=== PATIENT | female | born 1975 | race Caucasian/White ===

== ENCOUNTER 2016-05-25 16:36 | Emergency (ER) | payer OTHER ==
[2016-05-25 16:46] VITALS: BP 143/98; PULSE 102; RESP 18; TEMP 97.6
--- NOTE | 2016-05-25 17:05 | ED ---
General Adult HPI - General Chief complaint: Extremity Injury, Lower Stated complaint: Foot Injury Time Seen by Provider: 05/25/16 16:50 Source: patient, RN notes reviewed Mode of arrival: ambulatory Limitations: no limitations - History of Present Illness Initial comments: This is a 40-year-old female presents with right foot pain after dropping a phone on her toe. Patient states the third through fifth toes are painful with bruising over the fourth digit of the right foot. Patient denies any weakness or tingling but states the fourth toe feels different than the rest. Patient is able to move the digits of the right foot, but has noticed swelling and bruising. Patient is able to ambulate. Patient denies any recent fever, chills , shortness breath, chest pain, abdominal pain, nausea/vomiting/diarrhea, back pain, hematuria, headache, or visual changes, or any other complaints. - Related Data Home Medications Medication Instructions Recorded Confirmed Ibuprofen [Motrin] 800 mg PO QID PRN 03/25/16 03/30/16 Previous Rx's Medication Instructions Recorded Omeprazole 20 mg PO DAILY #15 cap 03/26/16 HYDROcodone/APAP 5-325MG [[place] 1 tab PO Q6HR PRN #20 tab 03/31/16 5-325] Allergies Allergy/AdvReac Type Severity Reaction Status Date / Time cephalexin monohydrate Allergy Rash/Hives Verified 05/25/16 16:46 [From Keflex] ciprofloxacin [From Cipro] Allergy Rash/Hives Verified 05/25/16 16:46 ciprofloxacin HCl Allergy Rash/Hives Verified 05/25/16 16:46 [From Cipro] Latex, Natural Rubber Allergy Itching Verified 05/25/16 16:46 prochlorperazine edisylate Allergy SEVERE Verified 05/25/16 16:46 [From Compazine] ANXIETY prochlorperazine maleate Allergy SEVERE Verified 05/25/16 16:46 [From Compazine] ANXIETY sulfamethoxazole Allergy Rash/Hives Verified 05/25/16 16:46 [From Bactrim] trimethoprim [From Bactrim] Allergy Rash/Hives Verified 05/25/16 16:46 Review of Systems ROS Statement: Those systems with pertinent positive or pertinent negative responses have been documented in the HPI. ROS Other: All systems not noted in ROS Statement are negative. Past Medical History Past Medical History: Osteoarthritis (OA), Pneumonia Additional Past Medical History / Comment(s): BOWEL OBSTRUCTION, PANCREATITIS, INTUSSUSCEPTION, HYDRONEPHROSIS, DEGENERATIVE DISC DISEASE, BULGING DISC, neutropenia, anemia, mitral valve prolapse, occasional heart palpitaions History of Any Multi-Drug Resistant Organisms: None Reported Past Surgical History: Bowel Resection, Breast Surgery, Section, Cholecystectomy, Hernia Repair, Hysterectomy, Orthopedic Surgery, Tonsillectomy Additional Past Surgical History / Comment(s): CERVICAL FUSION, EXPLORATORY LAPAROTOMY - REMOVAL OF ECTOPIC , DANNA-N-Y GASTIC BYPASS, ABDOMINOPLASTY, BREAST BIOPSY AND REDUCTION, bilateral knee arthoscopy, " Gastric bypass reversal enoch morgan during procedure 03/26 04/02 pancreatitis, left knee, myelogram Past Anesthesia/Blood Transfusion Reactions: No Reported Reaction Past Psychological History: Anxiety, Depression Additional Psychological History / Comment(s): no meds for it. discontinued 2013 Smoking Status: Former smoker Past Alcohol Use History: Occasional Past Drug Use History: None Reported Additional Drug Use History / Comment(s): social use of cocaine per pt last use months ago. Refusal of assistance, pt states she is not currently using. - Past Family History Mother Family Medical History: No Reported History General Exam - General Exam Comments Initial Comments: General: The patient is awake and alert, in no distress, and does not appear acutely ill. Neck: The neck is supple, there is no tenderness or JVD. Cardiovascular: There is a regular rate and rhythm. No murmur, rub or gallop is appreciated. Respiratory: Lungs are clear to auscultation, respirations are non-labored, breath sounds are equal. No wheezes, stridor, rales, or rhonchi. Musculoskeletal: Limited range of motion of the right toes due to pain, there is ecchymosis over the fourth digit of the right foot. There is mild tenderness over the 4th MTP joint of the right foot. Strength is 5/5 and Sensation intact. Dorsalis pedis pulses are 2+ bilaterally. Capillary refill is normal at less than 2 seconds. Neurological: A&O x 3. CN II-XII intact, There are no obvious motor or sensory deficits. Coordination appears grossly intact. Speech is normal. Skin: There is ecchymosis over the fourth digit of the right foot. Skin is warm and dry and no rashes or lesions are noted. Psychiatric: Normal mood and affect. Limitations: no limitations Course Vital Signs 05/25/16 16:44 Temperature 97.6 F Pulse Rate 102 H Respiratory 18 Rate Blood Pressure 143/98 O2 Sat by Pulse 99 Oximetry Medical Decision Making - Medical Decision Making This is a 40-year-old female presents with right foot pain after dropping a phone on her foot today. On physical exam there is limited range of motion of the right toes due to pain, there is ecchymosis over the fourth digit of the right foot. There is mild tenderness over the 4th MTP joint of the right foot. Strength is 5/5 and Sensation intact. Dorsalis pedis pulses are 2+ bilaterally. Capillary refill is normal at less than 2 seconds. Patient is able to ambulate. X-ray of the right foot was done and reviewed showing: No acute process. Report reviewed by Dr. Guan. Patient's third and fourth toes of the right foot were [place] taped for comfort. Neurovascular was rechecked and is intact. I discussed the removal of [place] tape if it causes discomfort. I discussed rest, ice, elevate and use [place] tape for compression. I discussed supportive foot wear. I discussed [id number] Tylenol or Motrin as needed for pain. Discussed return parameters. Discussed that patient should follow up with PCP in one to 2 days or return to the [facility] for any worsening symptoms or for any further concerns. Patient was receptive to this plan and patient will be discharged home. I discussed his case with attending physician Dr. Wilde who agrees the plan as stated above. Disposition Clinical Impression: Contusion of toe of right foot Disposition: HOME SELF-CARE Condition: Good Instructions: Foot Contusion (ED) Additional Instructions: Is rest, ice, elevate and use [place] tape for support. Please use over-the- counter, and or Motrin as needed for pain. Please use medication as discussed. Please follow-up with family doctor in the next 2 days of symptoms have not improved. Please return to emergency room if the symptoms increase or worsen or for any other concerns. Time of Disposition: 17:30
--- NOTE | 2016-05-25 17:23 | XR ---
EXAMINATION TYPE: XR foot complete RT DATE OF EXAM: 05/25/2016 5:11 PM COMPARISON: NONE HISTORY: Right foot pain and bruising fourth digit after fall and fell on it TECHNIQUE: 3 views FINDINGS: There is no fracture or malalignment. IMPRESSION: No acute process.
== END 2016-05-25 17:33 | disposition home or self-care (01) ==
LOC: EC 16:36
DX: S90.31XA Contusion of right foot, initial encounter (principal); W22.8XXA Striking against or struck by other objects, initial encounter; Z88.8 Allergy status to other drugs, medicaments and biological substances; Z88.1 Allergy status to other antibiotic agents; Z91.040 Latex allergy status; Z87.891 Personal history of nicotine dependence
CPT/HCPCS: 99284

== ENCOUNTER 2016-08-07 14:16 | Emergency (ER) | payer OTHER ==
[2016-08-07 14:46] VITALS: PULSE 119; RESP 18; TEMP 98.6
--- NOTE | 2016-08-07 16:43 | ED ---
Extremity Problem HPI - General Chief complaint: Extremity Problem,Nontraumatic Stated complaint: Leg Pain Time Seen by Provider: 08/07/16 16:13 Source: patient, RN notes reviewed Mode of arrival: wheelchair Limitations: no limitations - History of Present Illness Initial comments: Patient is a 40-year-old female with chief complaint of left lower extremity swelling for approximately 3 weeks. She reports that she has a history of chronic left leg issues that she did have a knee replacement approximately 5 years ago. She reports that she's had have her kneecap multiple times fluid to be drained. Patient denies any redness over the leg. She reports that the pain is in the posterior. She reports that she does have some peripheral paresthesias and numbness and tingling. She is able to ambulate and bear weight over the leg. She denies any pain with flexion and extension of the ankle or in her toes. Patient reports that she has been more depressed lately and has been laying on the couch. She denies any history of blood clots. Patient denies any recent fever, chills, shortness of breath, chest pain, back pain, abdominal pain, nausea vomiting, numbness or tingling, dysuria or hematuria, constipation or diarrhea, headaches or visual changes, or any other current symptoms - Related Data Home Medications Medication Instructions Recorded Confirmed Ascorbic Acid [Vitamin C] 500 mg PO DAILY 08/07/16 08/07/16 Black Cohosh 40 mg PO DAILY 08/07/16 08/07/16 Japanese Ginseng Root Extract 100 mg PO DAILY 08/07/16 08/07/16 [Ginseng] Pyridoxine [Vitamin B-6] 50 mg PO DAILY 08/07/16 08/07/16 [place]'s Wort 150 mg PO DAILY 08/07/16 08/07/16 Vitamin E (Dl,Tocopheryl Acet) 400 unit PO DAILY 08/07/16 08/07/16 [Vitamin E] Allergies Allergy/AdvReac Type Severity Reaction Status Date / Time cephalexin monohydrate Allergy Rash/Hives Verified 08/07/16 17:06 [From Keflex] ciprofloxacin [From Cipro] Allergy Rash/Hives Verified 08/07/16 17:06 ciprofloxacin HCl Allergy Rash/Hives Verified 08/07/16 17:06 [From Cipro] Latex, Natural Rubber Allergy Itching Verified 08/07/16 17:06 prochlorperazine edisylate Allergy SEVERE Verified 08/07/16 17:06 [From Compazine] ANXIETY prochlorperazine maleate Allergy SEVERE Verified 08/07/16 17:06 [From Compazine] ANXIETY sulfamethoxazole Allergy Rash/Hives Verified 08/07/16 17:06 [From Bactrim] trimethoprim [From Bactrim] Allergy Rash/Hives Verified 08/07/16 17:06 Review of Systems ROS Statement: Those systems with pertinent positive or pertinent negative responses have been documented in the HPI. ROS Other: All systems not noted in ROS Statement are negative. Past Medical History Past Medical History: Osteoarthritis (OA), Pneumonia Additional Past Medical History / Comment(s): BOWEL OBSTRUCTION, PANCREATITIS, INTUSSUSCEPTION, HYDRONEPHROSIS, DEGENERATIVE DISC DISEASE, BULGING DISC, neutropenia, anemia, mitral valve prolapse, occasional heart palpitaions History of Any Multi-Drug Resistant Organisms: None Reported Past Surgical History: Bowel Resection, Breast Surgery, Section, Cholecystectomy, Hernia Repair, Hysterectomy, Orthopedic Surgery, Tonsillectomy Additional Past Surgical History / Comment(s): CERVICAL FUSION, EXPLORATORY LAPAROTOMY - REMOVAL OF ECTOPIC , DANNA-N-Y GASTIC BYPASS, ABDOMINOPLASTY, BREAST BIOPSY AND REDUCTION, bilateral knee arthoscopy, " Gastric bypass reversal enoch morgan during procedure 03/26 04/02 pancreatitis, left knee, myelogram Past Anesthesia/Blood Transfusion Reactions: No Reported Reaction Past Psychological History: Anxiety, Depression Additional Psychological History / Comment(s): no meds for it. discontinued 2013 Smoking Status: Former smoker Past Alcohol Use History: Occasional Past Drug Use History: None Reported Additional Drug Use History / Comment(s): social use of cocaine per pt last use months ago. Refusal of assistance, pt states she is not currently using. - Past Family History Mother Family Medical History: No Reported History General Exam - General Exam Comments Initial Comments: Patient is a pleasant 40-year-old [employer]. No acute distress. Limitations: no limitations General appearance: alert, in no apparent distress Head exam: Present: atraumatic Eye exam: Present: normal appearance, PERRL, EOMI. Absent: scleral icterus, conjunctival injection, periorbital swelling ENT exam: Present: normal exam, mucous membranes moist Neck exam: Present: normal inspection. Absent: tenderness, meningismus, lymphadenopathy Respiratory exam: Present: normal lung sounds bilaterally. Absent: respiratory distress, wheezes, rales, rhonchi, stridor Cardiovascular Exam: Present: regular rate, normal rhythm, normal heart sounds. Absent: systolic murmur, diastolic murmur, rubs, gallop, clicks GI/Abdominal exam: Present: soft, normal bowel sounds. Absent: distended, tenderness, guarding, rebound, rigid Extremities exam: Present: normal inspection, full ROM, normal capillary refill , calf tenderness (Left posterior calf tenderness. No evidence of erythema. Patient is 2+ pedal pulses.). Absent: tenderness, pedal edema, joint swelling Back exam: Present: normal inspection Neurological exam: Present: alert, oriented X3, CN II-XII intact Psychiatric exam: Present: normal affect, normal mood Skin exam: Present: warm, dry, intact, normal color. Absent: rash Course Vital Signs 08/07/16 08/07/16 14:44 17:41 Temperature 98.6 F 98.6 F Pulse Rate 119 H 119 H Respiratory 18 18 Rate Blood Pressure 183/93 152/55 O2 Sat by Pulse 99 99 Oximetry Medical Decision Making - Medical Decision Making Patient is a 40-year-old female 3 weeks of left leg posterior calf swelling. Patient denies any history of blood clots. She is concerned that she may have one. Ultrasound of the left lower extremity is obtained. Ultrasound is negative for DVT. I discussed that the swelling could be dependent from her knee joint. Patient agrees. Patient is advised to follow up with her primary care provider as well as her agronomy specialist. Patient reports that this is a specialist in [place]. I discussed the patient should wear a depression stocking and keep the leg elevated. Return parameters were discussed. Patient understands treatment plan will comply. - Radiology Data Radiology results: report reviewed Ultrasound is negative for DVT. Disposition Clinical Impression: Edema of left lower extremity Disposition: HOME SELF-CARE Condition: Good Instructions: Leg Edema (ED) Additional Instructions: Patient advised to rest, elevate extremity and to wear compression stockings. Follow-up with primary care provider if symptoms continue to persist. I also recommend following up with your orthopedic physician for further testing or evaluation of the knee and the fluid around the knee. Referrals: Lisa Echeverria MD [STAFF PHYSICIAN] - 1-2 days Time of Disposition: 17:24
--- NOTE | 2016-08-07 17:36 | US ---
EXAMINATION TYPE: US venous doppler duplex LE LT DATE OF EXAM: 08/07/2016 5:19 PM COMPARISON: NONE CLINICAL HISTORY: Pain. Numbness left leg SIDE PERFORMED: VESSELS IMAGED: External Iliac Vein (EIV) Common Femoral Vein Deep Femoral Vein Greater Saphenous Vein * Femoral Vein Popliteal Vein Small Saphenous Vein * Proximal Calf Veins (* superficial vessels) TECHNOLOGIST IMPRESSION: wnl Left Leg: Negative for DVT IMPRESSION: Normal exam. No evidence of deep venous thrombosis.
[2016-08-07 17:42] VITALS: BP 152/55
== END 2016-08-07 17:42 | disposition home or self-care (01) ==
LOC: EC 14:16
DX: R60.0 Localized edema (principal); F32.9 Major depressive disorder, single episode, unspecified; F41.9 Anxiety disorder, unspecified; Z87.891 Personal history of nicotine dependence; Z88.1 Allergy status to other antibiotic agents; Z91.040 Latex allergy status; Z88.2 Allergy status to sulfonamides; Z88.8 Allergy status to other drugs, medicaments and biological substances; Z79.899 Other long term (current) drug therapy
CPT/HCPCS: 99283

== ENCOUNTER 2016-11-23 21:46 | Emergency (ER) | payer OTHER ==
[2016-11-23] MEDS ORDERED: SODIUM CHLORIDE 0.9% 1,000 ML IV STA (22:09)
[2016-11-23] MEDS ORDERED: ONDANSETRON 4 MG/2 ML VIAL IVP STA (22:09)
[2016-11-23] MEDS ORDERED: MORPHINE SULFATE 2 MG/ML SYRINGE IVP STA (22:09)
--- NOTE | 2016-11-23 22:25 | ED ---
Abdominal Pain HPI - General Chief Complaint: Abdominal Pain Stated Complaint: Abd /Back Pain Time Seen by Provider: 11/23/16 21:58 Source: patient Mode of arrival: ambulatory Limitations: no limitations - History of Present Illness Initial Comments: This patient is a 41-year-old woman with history of chronic intermittent abdominal pains who states that she has had a recurrence of some of her abdominal pain as well as vomiting and diarrhea. She started having a flareup about 4 days ago and she states that she has been playing phone tag with her physician in order to try and get in and get her symptoms under control, but as she is not able to be seen there she presented here to get some relief. She states that the pain is located in the left lower quadrant and on the right side of her abdomen. The pain is somewhat intermittent and it does seem to move around. It is aching and cramping. She has not found anything that seems to relieve the pain or make it worse. She has also been having a number of rounds of diarrhea and then vomiting started over the past couple days as well. She is not seeing any blood or dark tarry stools. She has not had any blood or coffee-ground emesis. Patient denies fever or chills. MD Complaint: abdominal pain Onset/Timin -: days(s) Location: RUQ, LLQ, RLQ Radiation: none Severity: moderate Quality: cramping Consistency: intermittent Worsens With: nothing Associated Symptoms: nausea, vomiting, diarrhea - Related Data Home Medications Medication Instructions Recorded Confirmed Naproxen [Naprosyn] 500 mg PO Q12HR 11/23/16 11/23/16 Ranitidine HCl [Zantac] 75 mg PO DAILY 11/23/16 11/23/16 Sertraline [Zoloft] 50 mg PO HS 11/23/16 11/23/16 Previous Rx's Medication Instructions Recorded Dicyclomine [Bentyl] 20 mg PO QID #15 tablet 11/24/16 Ondansetron Odt [Zofran ODT] 4 mg PO Q8HR PRN #10 tab 11/24/16 Allergies Allergy/AdvReac Type Severity Reaction Status Date / Time cephalexin monohydrate Allergy Rash/Hives Verified 11/23/16 22:14 [From Keflex] ciprofloxacin [From Cipro] Allergy Rash/Hives Verified 11/23/16 22:14 ciprofloxacin HCl Allergy Rash/Hives Verified 11/23/16 22:14 [From Cipro] Latex, Natural Rubber Allergy Itching Verified 11/23/16 22:14 prochlorperazine edisylate Allergy SEVERE Verified 11/23/16 22:14 [From Compazine] ANXIETY prochlorperazine maleate Allergy SEVERE Verified 11/23/16 22:14 [From Compazine] ANXIETY sulfamethoxazole Allergy Rash/Hives Verified 11/23/16 22:14 [From Bactrim] trimethoprim [From Bactrim] Allergy Rash/Hives Verified 11/23/16 22:14 Review of Systems ROS Statement: Those systems with pertinent positive or pertinent negative responses have been documented in the HPI. ROS Other: All systems not noted in ROS Statement are negative. Constitutional: Reports: weakness (Generalized). Denies: fever, chills Respiratory: Denies: cough, dyspnea, wheezes Cardiovascular: Denies: chest pain, palpitations, edema, syncope Gastrointestinal: Reports: abdominal pain, nausea, vomiting, diarrhea. Denies: constipation, hematemesis, melena, hematochezia Genitourinary: Denies: dysuria, hematuria Musculoskeletal: Denies: back pain Skin: Denies: rash Neurological: Denies: headache, weakness, numbness Past Medical History Past Medical History: Osteoarthritis (OA), Pneumonia Additional Past Medical History / Comment(s): BOWEL OBSTRUCTION, PANCREATITIS, INTUSSUSCEPTION, HYDRONEPHROSIS, DEGENERATIVE DISC DISEASE, BULGING DISC, neutropenia, anemia, mitral valve prolapse, occasional heart palpitaions History of Any Multi-Drug Resistant Organisms: None Reported Past Surgical History: Bowel Resection, Breast Surgery, Section, Cholecystectomy, Hernia Repair, Hysterectomy, Orthopedic Surgery, Tonsillectomy Additional Past Surgical History / Comment(s): CERVICAL FUSION, EXPLORATORY LAPAROTOMY - REMOVAL OF ECTOPIC , DANNA-N-Y GASTIC BYPASS, ABDOMINOPLASTY, BREAST BIOPSY AND REDUCTION, bilateral knee arthoscopy, " Gastric bypass reversal enoch morgan during procedure 03/26 04/02 pancreatitis, left knee, myelogram Past Anesthesia/Blood Transfusion Reactions: No Reported Reaction Past Psychological History: Anxiety, Depression Smoking Status: Former smoker Past Alcohol Use History: Occasional Past Drug Use History: None Reported - Past Family History Mother Family Medical History: No Reported History General Exam Limitations: no limitations General appearance: alert, in no apparent distress Head exam: Present: atraumatic, normocephalic Eye exam: Present: normal appearance. Absent: scleral icterus, conjunctival injection ENT exam: Present: normal oropharynx, mucous membranes moist Respiratory exam: Present: normal lung sounds bilaterally. Absent: respiratory distress, wheezes, rales, rhonchi, stridor Cardiovascular Exam: Present: regular rate (Heart rate 92 at my exam), normal rhythm, normal heart sounds. Absent: systolic murmur, diastolic murmur, rubs, gallop GI/Abdominal exam: Present: soft. Absent: distended, tenderness, guarding, rebound, mass Extremities exam: Present: normal inspection, normal capillary refill. Absent: pedal edema, calf tenderness Back exam: Present: normal inspection. Absent: CVA tenderness (R), CVA tenderness (L) Neurological exam: Present: alert Skin exam: Present: warm, dry, intact, normal color. Absent: rash Course Vital Signs 11/23/16 11/23/16 11/24/16 21:53 22:05 00:00 Temperature 98 F 98.8 F 98.1 F Pulse Rate 107 H 71 65 Respiratory 20 18 20 Rate Blood Pressure 136/91 137/80 145/87 O2 Sat by Pulse 100 97 97 Oximetry Medical Decision Making - Lab Data Result diagrams: 11/23/16 22:30 11/23/16 22:30 Lab Results 11/23/16 11/23/16 11/23/16 Range/Units 22:30 22:30 22:30 WBC 5.6 (3.8-10.6) k/uL RBC 4.73 (3.80-5.40) m/uL Hgb 13.1 (11.4-16.0) gm/dL Hct 38.2 (34.0-46.0) % MCV 80.9 (80.0-100.0) fL MCH 27.8 (25.0-35.0) pg MCHC 34.3 (31.0-37.0) g/dL RDW 14.5 (11.5-15.5) % Plt Count 298 (150-450) k/uL Neutrophils % 59 % Lymphocytes % 32 % Monocytes % 4 % Eosinophils % 2 % Basophils % 1 % Neutrophils # 3.3 (1.3-7.7) k/uL Lymphocytes # 1.8 (1.0-4.8) k/uL Monocytes # 0.2 (0-1.0) k/uL Eosinophils # 0.1 (0-0.7) k/uL Basophils # 0.0 (0-0.2) k/uL Sodium 143 (137-145) mmol/L Potassium 4.1 (3.5-5.1) mmol/L Chloride 106 (98-107) mmol/L Carbon Dioxide 23 (22-30) mmol/L Anion Gap 14 mmol/L BUN 12 (7-17) mg/dL Creatinine 0.60 (0.52-1.04) mg/dL Est GFR (MDRD) Af Amer >60 (>60 ml/min/1.73 sqM) Est GFR (MDRD) Non-Af >60 (>60 ml/min/1.73 sqM) Glucose 94 (74-99) mg/dL Plasma Lactic Acid Billy 1.7 (0.7-2.0) mmol/L Calcium 9.8 (8.4-10.2) mg/dL Total Bilirubin 0.4 (0.2-1.3) mg/dL AST 17 (14-36) U/L ALT 22 (9-52) U/L Alkaline Phosphatase 82 (38-126) U/L Total Protein 7.5 (6.3-8.2) g/dL Albumin 4.5 (3.5-5.0) g/dL Amylase 65 (30-110) U/L Lipase 163 (23-300) U/L Urine Color Urine Appearance (Clear) Urine pH (5.0-8.0) Ur Specific [place] (1.001-1.035) Urine Protein (Negative) Urine Glucose (UA) (Negative) Urine Ketones (Negative) Urine Blood (Negative) Urine Nitrite (Negative) Urine Bilirubin (Negative) Urine Urobilinogen (<2.0) mg/dL Ur Leukocyte Esterase (Negative) Urine HCG, Qual (Not Detectd) Urine Opiates Screen (NotDetected) Ur Oxycodone Screen (NotDetected) Urine Methadone Screen (NotDetected) Ur Propoxyphene Screen (NotDetected) Ur Barbiturates Screen (NotDetected) U Tricyclic Antidepress (NotDetected) Ur Phencyclidine Scrn (NotDetected) Ur Amphetamines Screen (NotDetected) U Methamphetamines Scrn (NotDetected) U Benzodiazepines Scrn (NotDetected) Urine Cocaine Screen (NotDetected) U Marijuana (THC) Screen (NotDetected) 11/23/16 11/23/16 Range/Units 23:10 23:10 WBC (3.8-10.6) k/uL RBC (3.80-5.40) m/uL Hgb (11.4-16.0) gm/dL Hct (34.0-46.0) % MCV (80.0-100.0) fL MCH (25.0-35.0) pg MCHC (31.0-37.0) g/dL RDW (11.5-15.5) % Plt Count (150-450) k/uL Neutrophils % % Lymphocytes % % Monocytes % % Eosinophils % % Basophils % % Neutrophils # (1.3-7.7) k/uL Lymphocytes # (1.0-4.8) k/uL Monocytes # (0-1.0) k/uL Eosinophils # (0-0.7) k/uL Basophils # (0-0.2) k/uL Sodium (137-145) mmol/L Potassium (3.5-5.1) mmol/L Chloride (98-107) mmol/L Carbon Dioxide (22-30) mmol/L Anion Gap mmol/L BUN (7-17) mg/dL Creatinine (0.52-1.04) mg/dL Est GFR (MDRD) Af Amer (>60 ml/min/1.73 sqM) Est GFR (MDRD) Non-Af (>60 ml/min/1.73 sqM) Glucose (74-99) mg/dL Plasma Lactic Acid Billy (0.7-2.0) mmol/L Calcium (8.4-10.2) mg/dL Total Bilirubin (0.2-1.3) mg/dL AST (14-36) U/L ALT (9-52) U/L Alkaline Phosphatase (38-126) U/L Total Protein (6.3-8.2) g/dL Albumin (3.5-5.0) g/dL Amylase (30-110) U/L Lipase (23-300) U/L Urine Color Light Yellow Urine Appearance Clear (Clear) Urine pH 5.5 (5.0-8.0) Ur Specific [place] 1.003 (1.001-1.035) Urine Protein Negative (Negative) Urine Glucose (UA) Negative (Negative) Urine Ketones Negative (Negative) Urine Blood Negative (Negative) Urine Nitrite Negative (Negative) Urine Bilirubin Negative (Negative) Urine Urobilinogen <2.0 (<2.0) mg/dL Ur Leukocyte Esterase Negative (Negative) Urine HCG, Qual Not Detected (Not Detectd) Urine Opiates Screen Detected H (NotDetected) Ur Oxycodone Screen Not Detected (NotDetected) Urine Methadone Screen Not Detected (NotDetected) Ur Propoxyphene Screen Not Detected (NotDetected) Ur Barbiturates Screen Not Detected (NotDetected) U Tricyclic Antidepress Not Detected (NotDetected) Ur Phencyclidine Scrn Not Detected (NotDetected) Ur Amphetamines Screen Not Detected (NotDetected) U Methamphetamines Scrn Detected H (NotDetected) U Benzodiazepines Scrn Not Detected (NotDetected) Urine Cocaine Screen Not Detected (NotDetected) U Marijuana (THC) Screen Not Detected (NotDetected) Disposition Clinical Impression: Chronic abdominal pain Disposition: HOME SELF-CARE Condition: Fair Instructions: Abdominal Pain (ED) Prescriptions: Dicyclomine [Bentyl] 20 mg PO QID #15 tablet Ondansetron Odt [Zofran ODT] 4 mg PO Q8HR PRN #10 tab PRN Reason: Nausea Referrals: Lisa Echeverria MD [Primary Care Provider] - 1-2 days
[2016-11-23 22:43] LABS: Basophils % (A) 1 %; CH 26.5; CHCM 32.8; Eosinophils # (A) 0.1 k/uL (0-0.7); Eosinophils % (A) 2 %; HCT 38.2 % (34.0-46.0); HDW 2.99; HGB 13.1 gm/dL (11.4-16.0); Luc # (Auto) 0.19; Luc % (Auto) 3; Lymphocytes # (A) 1.8 k/uL (1.0-4.8); Lymphocytes % (A) 32 %; MCH 27.8 pg (25.0-35.0); MCHC 34.3 g/dL (31.0-37.0); MCV 80.9 fL (80.0-100.0); Mean Platelet Volume 7.3; Monocytes # (A) 0.2 k/uL (0-1.0); Monocytes % (A) 4 %; Neutrophils # (A) 3.3 k/uL (1.3-7.7); Neutrophils % (A) 59 %; RBC 4.73 m/uL (3.80-5.40); RDW 14.5 % (11.5-15.5); WBC 5.6 k/uL (3.8-10.6); WBC (Perox) 5.53
[2016-11-23 22:52] LABS: ALT 22 U/L (9-52); AST 17 U/L (14-36); Alkaline Phosphatase 82 U/L (38-126); Amylase 65 U/L (30-110); Anion Gap 14 mmol/L; Blood Urea Nitrogen 12 mg/dL (7-17); Calcium 9.8 mg/dL (8.4-10.2); Carbon Dioxide 23 mmol/L (22-30); Chloride 106 mmol/L (98-107); Glucose 94 mg/dL (74-99); Non-African American GFR(MDRD) >60 (>60 ml/min/1.73 sqM); Potassium 4.1 mmol/L (3.5-5.1); Sodium 143 mmol/L (137-145); Total Bilirubin 0.4 mg/dL (0.2-1.3); Total Protein 7.5 g/dL (6.3-8.2)
[2016-11-23 23:19] LABS: Appearance,Urine Clear (Clear); Bilirubin,Urine Negative (Negative); Glucose,Urine (UA) Negative (Negative); Ketones,Urine Negative (Negative); Leukocyte Esterase,Urine Negative (Negative); Nitrite,Urine Negative (Negative); PH, Urine 5.5 (5.0-8.0); Protein,Urine Negative (Negative); Specific Gravity,Urine 1.003 (1.001-1.035); UA Billing (MACRO vs. MICRO) CHEM; Urobilinogen,Urine <2.0 mg/dL (<2.0)
--- NOTE | 2016-11-23 23:19 | XR ---
Exam: FILM KUB INDICATION: Abdominal pain COMPARISON: Abdominal radiograph exam 03/30/16 FINDINGS: 2 frontal views of the abdomen obtained. Cholecystectomy clips are noted along with surgical clips left upper quadrant. Few scattered air-filled loops of small bowel mildly prominent in caliber with caliber up to 3.5 cm greatest diameter. In the lower abdomen a few small air-fluid levels in the air-filled loops of small bowel noted. No free air under the diaphragm. No radiopaque renal calculi identified. Osseous structures intact. IMPRESSION: Few scattered air-filled loops of small bowel mildly prominent in caliber with caliber up to 3.5 cm greatest diameter. In the lower abdomen a few small air-fluid levels in the air-filled loops of small bowel noted. Findings such that a low-grade partial bowel obstruction. Considered in the proper clinical setting. Finding also present a partial ileus process. Follow-up can be considered to reevaluate. Cholecystectomy clips and surgical clips in the left upper quadrant of the abdomen. No free air under the diaphragm.
[2016-11-24] MEDS ORDERED: MORPHINE SULFATE 4 MG/ML SYRINGE IV STA (00:07)
[2016-11-24] MEDS ORDERED: ONDANSETRON 4 MG/2 ML VIAL IVP STA (00:07)
[2016-11-24 01:34] VITALS: BP 138/72; PULSE 70; RESP 18; TEMP 98.2
== END 2016-11-24 01:30 | disposition home or self-care (01) ==
LOC: EC 21:46
DX: R10.32 Left lower quadrant pain (principal); G89.29 Other chronic pain; M19.90 Unspecified osteoarthritis, unspecified site; F32.9 Major depressive disorder, single episode, unspecified; Z90.49 Acquired absence of other specified parts of digestive tract; Z87.891 Personal history of nicotine dependence; Z88.1 Allergy status to other antibiotic agents; Z91.040 Latex allergy status; Z91.048 Other nonmedicinal substance allergy status; Z88.8 Allergy status to other drugs, medicaments and biological substances; Z88.2 Allergy status to sulfonamides; Z79.1 Long term (current) use of non-steroidal anti-inflammatories (NSAID); Z79.899 Other long term (current) drug therapy
CPT/HCPCS: 99284; 96374; 96375; 96376 ×2; 96361; 36415; 80053; 82150; 83605; 83690; 85025; 81003; 81025; 80306; 74000; J2270 ×2; J2405 ×2

== ENCOUNTER 2016-12-30 00:05 | Emergency (ER) | payer OTHER ==
[2016-12-30 00:15] VITALS: RESP 18
[2016-12-30] MEDS ORDERED: MORPHINE SULFATE 4 MG/ML SYRINGE IV STA (01:26)
[2016-12-30] MEDS ORDERED: SODIUM CHLORIDE 0.9% 2,000 ML IV STA (01:26)
[2016-12-30 01:42] LABS: Anisocytosis Slight; Basophils % (A) 1 %; CH 27.6; Eosinophils # (A) 0.1 k/uL (0-0.7); Eosinophils % (A) 3 %; HCT 35.7 % (34.0-46.0); HDW 2.84; HGB 11.5 gm/dL (11.4-16.0); Luc # (Auto) 0.19; Luc % (Auto) 4; Lymphocytes # (A) 1.9 k/uL (1.0-4.8); Lymphocytes % (A) 41 %; MCH 27.1 pg (25.0-35.0); MCHC 32.3 g/dL (31.0-37.0); MCV 83.9 fL (80.0-100.0); Mean Platelet Volume 7.3; Monocytes # (A) 0.3 k/uL (0-1.0); Monocytes % (A) 6 %; Neutrophils # (A) 2.1 k/uL (1.3-7.7); Neutrophils % (A) 45 %; RBC 4.25 m/uL (3.80-5.40); RDW 16.1 % (11.5-15.5); WBC 4.7 k/uL (3.8-10.6); WBC (Perox) 4.76
[2016-12-30 01:43] LABS: Appearance,Urine Clear (Clear); Bilirubin,Urine Negative (Negative); Glucose,Urine (UA) Negative (Negative); Ketones,Urine Negative (Negative); Leukocyte Esterase,Urine Negative (Negative); Nitrite,Urine Negative (Negative); PH, Urine 5.5 (5.0-8.0); Protein,Urine Negative (Negative); Specific Gravity,Urine 1.002 (1.001-1.035); UA Billing (MACRO vs. MICRO) CHEM; Urobilinogen,Urine <2.0 mg/dL (<2.0)
[2016-12-30 01:52] LABS: ALT 26 U/L (9-52); AST 22 U/L (14-36); Alkaline Phosphatase 84 U/L (38-126); Amylase 91 U/L (30-110); Anion Gap 12 mmol/L; Blood Urea Nitrogen 10 mg/dL (7-17); Calcium 9.4 mg/dL (8.4-10.2); Carbon Dioxide 24 mmol/L (22-30); Chloride 105 mmol/L (98-107); Glucose 95 mg/dL (74-99); Non-African American GFR(MDRD) >60 (>60 ml/min/1.73 sqM); Potassium 4.3 mmol/L (3.5-5.1); Sodium 141 mmol/L (137-145); Total Bilirubin 0.2 mg/dL (0.2-1.3)
[2016-12-30 02:03] LABS: Prothrombin Time 9.9 sec (9.0-12.0)
--- NOTE | 2016-12-30 02:13 | XR ---
EXAM: XR Abdomen, 1 View CLINICAL HISTORY: Reason: abdominal pain TECHNIQUE: Frontal upright views of the abdomen/pelvis. COMPARISON: 11/23/16 KUB. FINDINGS: Intraperitoneal space: No free air. Gastrointestinal tract: There are again dilated air and fluid-filled jejunal loops within the mid and left upper to mid abdomen. Currently, the loops measure just under 4 cm in diameter versus 3.9 cm previously. There is some air seen within the colon to the level of the rectum. Bones/joints: Unremarkable. Soft tissues: There are again postsurgical changes in the left and right upper quadrants. IMPRESSION: Persistent or recurrent air and fluid-filled dilated small bowel loops in the left upper and mid abdomen, the differential for which again includes the possibility of small bowel obstruction or localizing ileus. This could be correlated clinically to guide further follow-up as clinically indicated. No evidence of free air.
[2016-12-30 02:23] LABS: Partial Thromboplastin Time 20.9 sec (22.0-30.0)
--- NOTE | 2016-12-30 02:35 | ED ---
Abdominal Pain HPI - General Chief Complaint: Abdominal Pain Stated Complaint: LOWER ABD/BACK PAIN Time Seen by Provider: 12/30/16 01:09 Source: patient, RN notes reviewed, old records reviewed Mode of arrival: ambulatory Limitations: no limitations - History of Present Illness Initial Comments: 41-year-old female presents emergency Department chief complaint of abdominal pain for the past few hours. Patient reports it's in the left side. She has an extensive surgical history with bowel resections. Patient has past medical history of intussusception, chronic abdominal pain, small bowel obstructions, pancreatitis. Patient reports that she's had no vomiting but feels nauseated. She states the pain radiates towards her back. She denies any changes in urination. States normal bowel movements as well. - Related Data Home Medications Medication Instructions Recorded Confirmed Naproxen [Naprosyn] 500 mg PO Q12HR 11/23/16 11/23/16 Ranitidine HCl [Zantac] 75 mg PO DAILY 11/23/16 11/23/16 Sertraline [Zoloft] 50 mg PO HS 11/23/16 11/23/16 Previous Rx's Medication Instructions Recorded Dicyclomine [Bentyl] 20 mg PO QID #15 tablet 11/24/16 Ondansetron Odt [Zofran ODT] 4 mg PO Q8HR PRN #10 tab 11/24/16 Allergies Allergy/AdvReac Type Severity Reaction Status Date / Time cephalexin monohydrate Allergy Rash/Hives Verified 12/30/16 00:15 [From Keflex] ciprofloxacin [From Cipro] Allergy Rash/Hives Verified 12/30/16 00:15 ciprofloxacin HCl Allergy Rash/Hives Verified 12/30/16 00:15 [From Cipro] Latex, Natural Rubber Allergy Itching Verified 12/30/16 00:15 prochlorperazine edisylate Allergy SEVERE Verified 12/30/16 00:15 [From Compazine] ANXIETY prochlorperazine maleate Allergy SEVERE Verified 12/30/16 00:15 [From Compazine] ANXIETY sulfamethoxazole Allergy Rash/Hives Verified 12/30/16 00:15 [From Bactrim] trimethoprim [From Bactrim] Allergy Rash/Hives Verified 12/30/16 00:15 Review of Systems ROS Statement: Those systems with pertinent positive or pertinent negative responses have been documented in the HPI. ROS Other: All systems not noted in ROS Statement are negative. Past Medical History Past Medical History: Osteoarthritis (OA), Pneumonia Additional Past Medical History / Comment(s): BOWEL OBSTRUCTION, PANCREATITIS, INTUSSUSCEPTION, HYDRONEPHROSIS, DEGENERATIVE DISC DISEASE, BULGING DISC, neutropenia, anemia, mitral valve prolapse, occasional heart palpitaions History of Any Multi-Drug Resistant Organisms: None Reported Past Surgical History: Bowel Resection, Breast Surgery, Section, Cholecystectomy, Hernia Repair, Hysterectomy, Orthopedic Surgery, Tonsillectomy Additional Past Surgical History / Comment(s): CERVICAL FUSION, EXPLORATORY LAPAROTOMY - REMOVAL OF ECTOPIC , DANNA-N-Y GASTIC BYPASS, ABDOMINOPLASTY, BREAST BIOPSY AND REDUCTION, bilateral knee arthoscopy, " Gastric bypass reversal enoch morgan during procedure 03/26 04/02 pancreatitis, left knee, myelogram Past Anesthesia/Blood Transfusion Reactions: No Reported Reaction Past Psychological History: Anxiety, Depression Smoking Status: Former smoker Past Alcohol Use History: Occasional Past Drug Use History: None Reported - Past Family History Mother Family Medical History: No Reported History General Exam - General Exam Comments Initial Comments: 41-year-old female. No acute distress. Limitations: no limitations General appearance: alert, in no apparent distress Head exam: Present: atraumatic, normocephalic, normal inspection Eye exam: Present: normal appearance, PERRL, EOMI. Absent: scleral icterus, conjunctival injection, periorbital swelling ENT exam: Present: normal exam, mucous membranes moist Neck exam: Present: normal inspection. Absent: tenderness, meningismus, lymphadenopathy Respiratory exam: Present: normal lung sounds bilaterally. Absent: respiratory distress, wheezes, rales, rhonchi, stridor Cardiovascular Exam: Present: regular rate, normal rhythm, normal heart sounds. Absent: systolic murmur, diastolic murmur, rubs, gallop, clicks GI/Abdominal exam: Present: soft, tenderness (LUQ and LLQ tenderness. ), normal bowel sounds. Absent: distended, guarding, rebound, rigid Extremities exam: Present: normal inspection, full ROM, normal capillary refill. Absent: tenderness, pedal edema, joint swelling, calf tenderness Back exam: Present: normal inspection Neurological exam: Present: alert, oriented X3, CN II-XII intact Psychiatric exam: Present: normal affect, normal mood Skin exam: Present: warm, dry, intact, normal color. Absent: rash Course Vital Signs 12/30/16 12/30/16 00:12 02:50 Temperature 97.0 F L 98.3 F Pulse Rate 115 H 72 Respiratory 18 18 Rate Blood Pressure 143/97 146/83 O2 Sat by Pulse 99 98 Oximetry Medical Decision Making - Medical Decision Making 41-year-old female presents emergency Department chief complaint of abdominal pain for the past few hours. Patient reports it's in the left side. She has an extensive surgical history with bowel resections. Patient has past medical history of intussusception, chronic abdominal pain, small bowel obstructions, pancreatitis. Patient reports that she's had no vomiting but feels nauseated. She states the pain radiates towards her back. Patient labwork was reviewed, negative for any acute process. Amylase, lipase, WBC, and liver enzymes within normal limits. Patient recieved xray which shows some mild illeus. Patient had previous finding on xrays before, and was sent home. Clinically rafita has no sign of illeus or bowel obstruction, she has had no vomiting and reports passing gas and bowel movements. She was informed of these results, advised to see primary care or return if symptoms worses. Discussed bowel rest and clear liquid diet. - Lab Data Result diagrams: 12/30/16 00:48 12/30/16 00:48 Lab Results 12/30/16 12/30/16 12/30/16 Range/Units 00:48 00:48 00:48 WBC 4.7 (3.8-10.6) k/uL RBC 4.25 (3.80-5.40) m/uL Hgb 11.5 (11.4-16.0) gm/dL Hct 35.7 (34.0-46.0) % MCV 83.9 (80.0-100.0) fL MCH 27.1 (25.0-35.0) pg MCHC 32.3 (31.0-37.0) g/dL RDW 16.1 H (11.5-15.5) % Plt Count 320 (150-450) k/uL Neutrophils % 45 % Lymphocytes % 41 % Monocytes % 6 % Eosinophils % 3 % Basophils % 1 % Neutrophils # 2.1 (1.3-7.7) k/uL Lymphocytes # 1.9 (1.0-4.8) k/uL Monocytes # 0.3 (0-1.0) k/uL Eosinophils # 0.1 (0-0.7) k/uL Basophils # 0.0 (0-0.2) k/uL Anisocytosis Slight PT 9.9 (9.0-12.0) sec INR 1.0 (<1.2) APTT 20.9 L (22.0-30.0) sec Sodium 141 (137-145) mmol/L Potassium 4.3 (3.5-5.1) mmol/L Chloride 105 (98-107) mmol/L Carbon Dioxide 24 (22-30) mmol/L Anion Gap 12 mmol/L BUN 10 (7-17) mg/dL Creatinine 0.60 (0.52-1.04) mg/dL Est GFR (MDRD) Af Amer >60 (>60 ml/min/1.73 sqM) Est GFR (MDRD) Non-Af >60 (>60 ml/min/1.73 sqM) Glucose 95 (74-99) mg/dL Calcium 9.4 (8.4-10.2) mg/dL Total Bilirubin 0.2 (0.2-1.3) mg/dL AST 22 (14-36) U/L ALT 26 (9-52) U/L Alkaline Phosphatase 84 (38-126) U/L Total Protein 7.0 (6.3-8.2) g/dL Albumin 4.2 (3.5-5.0) g/dL Amylase 91 (30-110) U/L Lipase 245 (23-300) U/L Urine Color Urine Appearance (Clear) Urine pH (5.0-8.0) Ur Specific [place] (1.001-1.035) Urine Protein (Negative) Urine Glucose (UA) (Negative) Urine Ketones (Negative) Urine Blood (Negative) Urine Nitrite (Negative) Urine Bilirubin (Negative) Urine Urobilinogen (<2.0) mg/dL Ur Leukocyte Esterase (Negative) 12/30/16 Range/Units 00:48 WBC (3.8-10.6) k/uL RBC (3.80-5.40) m/uL Hgb (11.4-16.0) gm/dL Hct (34.0-46.0) % MCV (80.0-100.0) fL MCH (25.0-35.0) pg MCHC (31.0-37.0) g/dL RDW (11.5-15.5) % Plt Count (150-450) k/uL Neutrophils % % Lymphocytes % % Monocytes % % Eosinophils % % Basophils % % Neutrophils # (1.3-7.7) k/uL Lymphocytes # (1.0-4.8) k/uL Monocytes # (0-1.0) k/uL Eosinophils # (0-0.7) k/uL Basophils # (0-0.2) k/uL Anisocytosis PT (9.0-12.0) sec INR (<1.2) APTT (22.0-30.0) sec Sodium (137-145) mmol/L Potassium (3.5-5.1) mmol/L Chloride (98-107) mmol/L Carbon Dioxide (22-30) mmol/L Anion Gap mmol/L BUN (7-17) mg/dL Creatinine (0.52-1.04) mg/dL Est GFR (MDRD) Af Amer (>60 ml/min/1.73 sqM) Est GFR (MDRD) Non-Af (>60 ml/min/1.73 sqM) Glucose (74-99) mg/dL Calcium (8.4-10.2) mg/dL Total Bilirubin (0.2-1.3) mg/dL AST (14-36) U/L ALT (9-52) U/L Alkaline Phosphatase (38-126) U/L Total Protein (6.3-8.2) g/dL Albumin (3.5-5.0) g/dL Amylase (30-110) U/L Lipase (23-300) U/L Urine Color Colorless Urine Appearance Clear (Clear) Urine pH 5.5 (5.0-8.0) Ur Specific [place] 1.002 (1.001-1.035) Urine Protein Negative (Negative) Urine Glucose (UA) Negative (Negative) Urine Ketones Negative (Negative) Urine Blood Negative (Negative) Urine Nitrite Negative (Negative) Urine Bilirubin Negative (Negative) Urine Urobilinogen <2.0 (<2.0) mg/dL Ur Leukocyte Esterase Negative (Negative) Disposition Clinical Impression: Abdominal pain, Diarrhea Disposition: HOME SELF-CARE Condition: Good Instructions: Abdominal Pain (ED) Additional Instructions: Patient is a follow-up with her primary care physician. Return to the emergency department if any alarming signs or symptoms occur. Referrals: Lisa Echeverria MD [Primary Care Provider] - 1-2 days Time of Disposition: 02:53
[2016-12-30] MEDS ORDERED: HYDROmorphone 1 MG/ML 1 ML SYRINGE IVP STA (02:53)
[2016-12-30 02:54] VITALS: BP 146/83; PULSE 72; TEMP 98.3
== END 2016-12-30 03:03 | disposition home or self-care (01) ==
LOC: EC 00:05
DX: R10.9 Unspecified abdominal pain (principal); R19.7 Diarrhea, unspecified; R11.0 Nausea; M54.9 Dorsalgia, unspecified; M19.90 Unspecified osteoarthritis, unspecified site; F32.9 Major depressive disorder, single episode, unspecified; F41.9 Anxiety disorder, unspecified; Z87.891 Personal history of nicotine dependence; Z79.1 Long term (current) use of non-steroidal anti-inflammatories (NSAID); Z79.899 Other long term (current) drug therapy; Z88.1 Allergy status to other antibiotic agents; Z91.040 Latex allergy status; Z87.19 Personal history of other diseases of the digestive system; Z90.49 Acquired absence of other specified parts of digestive tract
CPT/HCPCS: 36415; 80053; 82150; 83690; 85025; 85610; 85730; 81003; 74000; 99284; 96374; 96375; 96361; J2270; J1170

== ENCOUNTER → 2017-02-12 | Outpatient (CLI) | payer OTHER ==
--- NOTE | 2017-02-14 07:58 | MR ---
EXAMINATION TYPE: MR lumbar spine wo con DATE OF EXAM: 02/12/2017 COMPARISON: NONE HISTORY: Chronic pain TECHNIQUE: Multiplanar, multisequence images of the lumbar spine were acquired. L1-L2: Small posterior disc herniation causes anterior mass effect on the thecal sac. No significant foraminal encroachment or central stenosis. L2-L3: Normal disc appearance without desiccation. No herniation, protrusion or disc bulging. No ca nal stenosis is present. Foramina are patent bilaterally. L3-L4: Mild facet arthropathy. No significant central stenosis or sizable disc herniation. Broad-base d posterior disc bulge causes minimal anterior mass effect on the thecal sac. No significant central stenosis. L4-L5: There is facet arthropathy with hypertrophy ligamentum flavum encroaching on the lateral reces ses. Circumferential posterior disc bulge causes mild anterior mass effect on the thecal sac and exte nds towards the neural foramina encroaching mildly. No significant central stenosis. L5-S1: Eccentric, right lateral disc deviation present towards the right of midline causing some righ t foraminal encroachment, minimal anterolateral mass effect on the thecal sac. No significant central canal stenosis. Facet arthropathy changes present. Lumbar segments are intact. No paraspinal masses are identified. Conus medullaris has a normal appe arance. Lumbar vertebral bodies show preserved height and alignment. Bone marrow signal is maintained . Some loss of disc height and signal present especially at L5-S1, L3-4, L1-2. Mild spinal curvature is suspected. IMPRESSION: Mild degenerative disc disease as described with facet arthropathy and additional findings as describ ed above.
== END | disposition home or self-care (01) ==
LOC: RADMRIMAIN 19:39
PROVIDERS: ATTEND Family Medicine
DX: M51.36 Other intervertebral disc degeneration, lumbar region (principal); M46.86 Other specified inflammatory spondylopathies, lumbar region; Z88.1 Allergy status to other antibiotic agents; Z88.2 Allergy status to sulfonamides; Z88.3 Allergy status to other anti-infective agents; Z88.8 Allergy status to other drugs, medicaments and biological substances
CPT/HCPCS: 72148

== ENCOUNTER → 2017-04-14 | Outpatient (CLI) | payer OTHER ==
--- NOTE | 2017-04-14 11:55 | ECHOF ---
Referral Reason:R00.2 Palpitations, Cardiac Murmur R01.1 MEASUREMENTS -------- HEIGHT: 167.6 cm WEIGHT: 86.2 kg BP: RVIDd: 3.6 cm (< 3.3) IVSd: 0.9 cm (0.6 - 1.1) LVIDd: 4.5 cm (3.9 - 5.3) LVPWd: 1.2 cm (0.6 - 1.1) IVSs: 1.4 cm LVIDs: 2.4 cm LVPWs: 2.3 cm LAESV Index (A-L): 37.72 ml/m Ao Diam: 2.7 cm (2.0 - 3.7) AV Cusp: 1.9 cm (1.5 - 2.6) LA Diam: 3.7 cm (2.7 - 3.8) EPSS: 0.3 cm MV E Niels: 0.98 m/s MV DecT: 224 ms MV A Niels: 0.74 m/s MV E/A Ratio: 1.31 RAP: 5.00 mmHg RVSP: 27.59 mmHg MV EF SLOPE: 0.00 mm/s (70 - 150) MV EXCURSION: 1.93 cm (> 18.000) FINDINGS -------- Sinus rhythm. This was a technically good study. The left ventricular size is normal. There is borderline concentric left ventricular hypertrophy. Overall left ventricular systolic function is normal with, an EF between 55 - 60 %. The right ventricle is mildly enlarged. LA is moderately dilated 34-39 ml/m2 The right atrium is normal in size. The aortic valve is trileaflet, and appears structurally normal. No aortic stenosis or regurgitation. Mild mitral regurgitation is present. Mild tricuspid regurgitation present. The right ventricular systolic pressure, as measured by Doppl er, is 27.59mmHg. Pulmonic valve appears structurally normal. The aortic root size is normal. Normal inferior vena cava with normal inspiratory collapse consistent with estimated right atrial pre ssure of 5 mmHg. The pericardium is normal. CONCLUSIONS -------- 1. Sinus rhythm. 2. This was a technically good study. 3. The left ventricular size is normal. 4. There is borderline concentric left ventricular hypertrophy. 5. Overall left ventricular systolic function is normal with, an EF between 55 - 60 %. 6. The right ventricle is mildly enlarged. 7. LA is moderately dilated 34-39 ml/m2 8. The right atrium is normal in size. 9. The aortic valve is trileaflet, and appears structurally normal. No aortic stenosis or regurgitati on. 10. Mild mitral regurgitation is present. 11. Mild tricuspid regurgitation present. 12. The right ventricular systolic pressure, as measured by Doppler, is 27.59mmHg. 13. Pulmonic valve appears structurally normal. 14. The aortic root size is normal. 15. Normal inferior vena cava with normal inspiratory collapse consistent with estimated right atrial pressure of 5 mmHg. 16. The pericardium is normal. DIRECTOR OF MEDICAL REVIEW: Syl Osei RDCS
== END | disposition home or self-care (01) ==
LOC: RADECHMAIN 10:42
PROVIDERS: ATTEND Family Medicine
DX: I08.1 Rheumatic disorders of both mitral and tricuspid valves (principal)
CPT/HCPCS: 93225; 93226; 93306

== ENCOUNTER 2017-11-14 20:49 | Observation (INO) | payer OTHER ==
[2017-11-14] MEDS ORDERED: ASPIRIN 81 MG PO STA (20:58)
[2017-11-14] MEDS ORDERED: SODIUM CHLORIDE 0.9% 1,000 ML IV STA (20:58)
[2017-11-14] MEDS ORDERED: ONDANSETRON 4 MG/2 ML VIAL IVP STA (20:59)
--- NOTE | 2017-11-14 21:00 | ED ---
Chest Pain HPI - General Chief Complaint: Chest Pain Stated Complaint: Chest Pain Time Seen by Provider: 11/14/17 20:57 Source: patient Mode of arrival: wheelchair Limitations: no limitations - History of Present Illness Initial Comments: Patient presents with chest pain that or a sharp twisting in the left chest, radiating to left arm. Associated with nausea. Chest pains occur with exertion. Improved with rest. Patient states she has a history of SVT, dilated atrium, however denies coronary artery disease. States she was recommended to have a stress test in June, however was unable to follow up to get this done. Patient states she is a former smoker, quit 2 years ago, however has had occasional cigarette since that time. Patient has not taken any aspirin it today. Patient denies lightheadedness, syncope, shortness of breath, palpitations. Has recent illness, fevers, chills, cough. - Related Data Home Medications Medication Instructions Recorded Confirmed Naproxen [Naprosyn] 500 mg PO Q12HR 11/23/16 11/23/16 Ranitidine HCl [Zantac] 75 mg PO DAILY 11/23/16 11/23/16 Sertraline [Zoloft] 50 mg PO HS 11/23/16 11/23/16 Previous Rx's Medication Instructions Recorded Dicyclomine [Bentyl] 20 mg PO QID #15 tablet 11/24/16 Ondansetron Odt [Zofran ODT] 4 mg PO Q8HR PRN #10 tab 11/24/16 Allergies Allergy/AdvReac Type Severity Reaction Status Date / Time cephalexin monohydrate Allergy Rash/Hives Verified 11/14/17 20:56 [From Keflex] ciprofloxacin [From Cipro] Allergy Rash/Hives Verified 11/14/17 20:56 ciprofloxacin HCl Allergy Rash/Hives Verified 11/14/17 20:56 [From Cipro] Latex, Natural Rubber Allergy Itching Verified 11/14/17 20:56 prochlorperazine edisylate Allergy SEVERE Verified 11/14/17 20:56 [From Compazine] ANXIETY prochlorperazine maleate Allergy SEVERE Verified 11/14/17 20:56 [From Compazine] ANXIETY sulfamethoxazole Allergy Rash/Hives Verified 11/14/17 20:56 [From Bactrim] trimethoprim [From Bactrim] Allergy Rash/Hives Verified 11/14/17 20:56 gabapentin AdvReac Hallucinati Verified 11/14/17 20:56 ons Review of Systems ROS Statement: Those systems with pertinent positive or pertinent negative responses have been documented in the HPI. ROS Other: All systems not noted in ROS Statement are negative. Constitutional: Denies: fever, chills Eyes: Denies: vision change ENT: Denies: congestion Respiratory: Denies: cough, dyspnea, wheezes Cardiovascular: Reports: chest pain, dyspnea on exertion. Denies: palpitations , orthopnea, edema, syncope Endocrine: Denies: fatigue Gastrointestinal: Reports: nausea. Denies: abdominal pain, vomiting, diarrhea, constipation, hematemesis Genitourinary: Denies: urgency, frequency, hematuria Musculoskeletal: Denies: back pain, arthralgia, myalgia Skin: Denies: rash, change in color Neurological: Denies: headache, weakness, numbness Psychiatric: Denies: anxiety, depression Past Medical History Past Medical History: Osteoarthritis (OA), Pneumonia Additional Past Medical History / Comment(s): BOWEL OBSTRUCTION, PANCREATITIS, INTUSSUSCEPTION, HYDRONEPHROSIS, DEGENERATIVE DISC DISEASE, BULGING DISC, neutropenia, anemia, mitral valve prolapse, occasional heart palpitaions, SVT- PVC's History of Any Multi-Drug Resistant Organisms: None Reported Past Surgical History: Bowel Resection, Breast Surgery, Section, Cholecystectomy, Hernia Repair, Hysterectomy, Orthopedic Surgery, Tonsillectomy Additional Past Surgical History / Comment(s): CERVICAL FUSION, EXPLORATORY LAPAROTOMY - REMOVAL OF ECTOPIC , DANNA-N-Y GASTIC BYPASS, ABDOMINOPLASTY, BREAST BIOPSY AND REDUCTION, bilateral knee arthoscopy, " Gastric bypass reversal enoch morgan during procedure 03/26 04/02 pancreatitis, left knee, myelogram Past Anesthesia/Blood Transfusion Reactions: No Reported Reaction Past Psychological History: Anxiety, Depression Smoking Status: Former smoker Past Alcohol Use History: Occasional Past Drug Use History: None Reported - Past Family History Mother Family Medical History: No Reported History General Exam - General Exam Comments Initial Comments: Sitting up in bed. No acute distress. Conversing normally. Calm, pleasant. Not appear in pain. No diaphoresis. Well-appearing. Limitations: no limitations General appearance: alert, in no apparent distress Head exam: Present: atraumatic, normocephalic Eye exam: Present: normal appearance, PERRL, EOMI ENT exam: Present: normal oropharynx, other (No teeth.) Neck exam: Present: normal inspection Respiratory exam: Present: normal lung sounds bilaterally. Absent: respiratory distress, wheezes, rales, rhonchi, stridor, chest wall tenderness, accessory muscle use Cardiovascular Exam: Present: regular rate, normal rhythm GI/Abdominal exam: Present: soft. Absent: distended, tenderness, guarding, rebound Extremities exam: Present: normal inspection Back exam: Present: normal inspection Neurological exam: Present: alert, oriented X3 Psychiatric exam: Present: normal affect, normal mood Skin exam: Present: warm, dry, intact, normal color. Absent: cyanosis, diaphoretic, erythema Course Vital Signs 11/14/17 11/14/17 11/14/17 20:53 21:17 21:26 Temperature 97.7 F Pulse Rate 68 72 Respiratory 18 20 18 Rate Blood Pressure 134/86 130/77 O2 Sat by Pulse 97 97 Oximetry Chest Pain MDM - MDM EKG normal sinus rhythm, T-wave inversions V1 through V3, heart rate 70, no ST elevations. Aspirin, Zofran ordered. Troponin negative. Mild elevation of LFTs. Patient updated with all results & plan, chest pain for this time. Plan for observation for further cardiac monitoring, possible stress test, patient did not follow-up as outpatient for stress test last time. Spoke with Dr. Arellano, updated with patient condition results, agrees with observation, no further requests at this time. Disposition Clinical Impression: Chest pain Disposition: ADMITTED IP TO THIS HOSP Condition: Good Referrals: Lisa Echeverria MD [Primary Care Provider] - 1-2 days
[2017-11-14 21:24] LABS: Anisocytosis Slight; Basophils % (A) 1 %; Eosinophils # (A) 0.2 k/uL (0-0.7); Eosinophils % (A) 3 %; HCT 39.5 % (34.0-46.0); HGB 13.1 gm/dL (11.4-16.0); Lymphocytes # (A) 2.7 k/uL (1.0-4.8); Lymphocytes % (A) 45 %; MCH 27.8 pg (25.0-35.0); MCV 84.1 fL (80.0-100.0); Mean Platelet Volume 7.2; Monocytes # (A) 0.5 k/uL (0-1.0); Monocytes % (A) 8 %; Neutrophils # (A) 2.5 k/uL (1.3-7.7); Neutrophils % (A) 41 %; Platelet Count 309 k/uL (150-450); RDW 17.2 % (11.5-15.5)
[2017-11-14 21:33] LABS: ALT 222 U/L (9-52); AST 147 U/L (14-36); Albumin 4.3 g/dL (3.5-5.0); Alkaline Phosphatase 132 U/L (38-126); Anion Gap 12 mmol/L; Blood Urea Nitrogen 16 mg/dL (7-17); Calcium 9.5 mg/dL (8.4-10.2); Carbon Dioxide 22 mmol/L (22-30); Chloride 105 mmol/L (98-107); Glucose 99 mg/dL (74-99); Magnesium 1.8 mg/dL (1.6-2.3); Potassium 4.5 mmol/L (3.5-5.1); Sodium 139 mmol/L (137-145); Total Bilirubin 0.2 mg/dL (0.2-1.3); Total Protein 7.1 g/dL (6.3-8.2)
[2017-11-14 21:45] LABS: Partial Thromboplastin Time 21.9 sec (22.0-30.0); Prothrombin Time 9.7 sec (9.0-12.0)
--- NOTE | 2017-11-14 21:51 | XR ---
EXAMINATION TYPE: XR chest 2V DATE OF EXAM: 11/14/2017 COMPARISON: NONE INDICATION: Chest pain TECHNIQUE: Frontal and lateral views of the chest are obtained. FINDINGS: The heart size is normal. The pulmonary vasculature is normal. The lungs are clear. IMPRESSION: 1. No acute pulmonary process.
[2017-11-14] MEDS ORDERED: NITROGLYCERIN SL TABS 0.4 MG TAB SUBLINGUAL PRN (21:52)
[2017-11-14] MEDS ORDERED: SERTRALINE 50 MG TAB PO SCH ×2 (23:00→23:39)
[2017-11-15] MEDS ORDERED: ALPRAZolam 0.5 MG TAB PO PRN (00:31)
--- NOTE | 2017-11-15 00:50 | P.HPIM ---
History of Present Illness H&P Date: 11/15/17 Chief Complaint: Chest pain 42-year-old female with history of osteoarthritis and polysubstance abuse. She presented to the hospital due to 1 day history of chest pain she reports that back in June she was told that she would need some cardiac workup for a SVT to be done however she could not take time off from work at that time. However over the past week she noticed some frequent attacks of chest pain symptoms related to exertion and activity otherwise comes sometimes at rest. He describes the attack as sudden sharp left-sided chest pain sometimes radiates to the left arm not associated with diaphoresis or dizziness or lightheadedness but sometimes is associated with uneasy feeling in the chest and she feels her heart racing today she had a chest pain in the morning when she was just active around the house and lasted all day long eventually she decided to come to the hospital. Currently she still reports left-sided chest pain sharp in nature 6 out of 10 in severity not radiating at this time however it radiates to the left arm sometimes. She denies any family history of premature CAD. She denies any active smoking however she would take a cigarette here and there she officially quit 2 years ago. She also admits to polysubstance abuse she calls it so she'll use of heroin, meth, and cocaine. Last time she used it she told me a month ago however she told the nurse one week ago. Currently otherwise denies any hearing or visual changes, denies any abdominal pain diarrhea or constipation, denies any nausea or vomiting, denies any focal neurologic deficits, denies any heat or cold intolerance. Review of Systems Pertinent positives as noted in HPI. All other systems were reviewed and are negative Past Medical History Past Medical History: Osteoarthritis (OA), Pneumonia Additional Past Medical History / Comment(s): BOWEL OBSTRUCTION, PANCREATITIS, INTUSSUSCEPTION, HYDRONEPHROSIS, DEGENERATIVE DISC DISEASE, BULGING DISC, neutropenia, anemia, mitral valve prolapse, occasional heart palpitaions, SVT- PVC's History of Any Multi-Drug Resistant Organisms: None Reported Past Surgical History: Bowel Resection, Breast Surgery, Section, Cholecystectomy, Hernia Repair, Hysterectomy, Orthopedic Surgery, Tonsillectomy Additional Past Surgical History / Comment(s): CERVICAL FUSION, EXPLORATORY LAPAROTOMY - REMOVAL OF ECTOPIC , DANNA-N-Y GASTIC BYPASS, ABDOMINOPLASTY, BREAST BIOPSY AND REDUCTION, bilateral knee arthoscopy, " Gastric bypass reversal enoch morgan during procedure 03/26 04/02 pancreatitis, left knee, myelogram Past Anesthesia/Blood Transfusion Reactions: No Reported Reaction Past Psychological History: Anxiety, Depression Smoking Status: Former smoker Past Alcohol Use History: Occasional Past Drug Use History: None Reported - Past Family History Mother Family Medical History: No Reported History Medications and Allergies Home Medications Medication Instructions Recorded Confirmed Type Ranitidine HCl [Zantac] 75 mg PO DAILY 11/23/16 11/14/17 History Sertraline [Zoloft] 100 mg PO HS 11/23/16 11/14/17 History Metoprolol Succinate [Toprol XL] 25 mg PO DAILY 11/14/17 11/14/17 History busPIRone HCL [Buspar] 15 mg PO BID 11/14/17 11/14/17 History Allergies Allergy/AdvReac Type Severity Reaction Status Date / Time cephalexin monohydrate Allergy Rash/Hives Verified 11/14/17 23:30 [From Keflex] ciprofloxacin [From Cipro] Allergy Rash/Hives Verified 11/14/17 23:30 ciprofloxacin HCl Allergy Rash/Hives Verified 11/14/17 23:30 [From Cipro] Latex, Natural Rubber Allergy Itching Verified 11/14/17 23:30 prochlorperazine edisylate Allergy SEVERE Verified 11/14/17 23:30 [From Compazine] ANXIETY prochlorperazine maleate Allergy SEVERE Verified 11/14/17 23:30 [From Compazine] ANXIETY sulfamethoxazole Allergy Rash/Hives Verified 11/14/17 23:30 [From Bactrim] trimethoprim [From Bactrim] Allergy Rash/Hives Verified 11/14/17 23:30 gabapentin AdvReac Hallucinati Verified 11/14/17 23:30 ons Physical Exam Vitals: Vital Signs Temp Pulse Resp BP Pulse Ox 11/14/17 22:22 97.9 F 66 16 115/73 98 11/14/17 21:26 72 18 130/77 97 11/14/17 21:17 20 11/14/17 20:53 97.7 F 68 18 134/86 97 Intake and Output 11/14/17 11/14/17 11/15/17 14:59 22:59 06:59 Other: Weight 81.647 kg Constitutional: No acute distress, conversant, pleasant Eyes: Anicteric sclerae, moist conjunctiva, no lid-lag Pupils equal round reactive to light ENMT: NC/AT Oropharynx clear, no erythema, or exudates Neck: Supple, FROM, no masses, or JVD No carotid bruits No thyromegaly Lungs: Clear to auscultation Clear to percussion Normal respiratory effort, no accessory muscle use Cardiovascular: Heart regular in rate and rhythm, No murmurs, gallops, or rubs No peripheral edema Abdominal: Soft Nontender, no guarding, rebound or rigidity Abdomen moving with respiration Normoactive bowel sounds No hepatomegaly, No splenomegaly No palpable mass No abdominal wall hernia noted Skin: Normal temperature, tone, texture, turgor No induration No subcutaneous nodules No rash, lesions No ulcers Extremities: No digital cyanosis No clubbing Pedal pulses intact and symmetrical Radial pulses intact and symmetrical No calf tenderness Psychiatric: Alert and oriented to person, place and time Appropriate affect fair judgment Neuro Muscles Strength 5/5 in all 4 extremities Sensation to light touch grossly present throughout Cranial nerves II-XII grossly intact No focal sensory deficits Lymphatics: no palpable cervical or supraclavicular , or inguinal lymph nodes Results CBC & Chem 7: 11/14/17 21:10 11/14/17 21:10 Labs: Abnormal Lab Results - Last 24 Hours (Table) 11/14/17 11/14/17 11/14/17 Range/Units 21:10 21:10 21:10 RDW 17.2 H (11.5-15.5) % APTT 21.9 L (22.0-30.0) sec AST 147 H (14-36) U/L ALT 222 H (9-52) U/L Alkaline Phosphatase 132 H (38-126) U/L Assessment and Plan Assessment: 42-year-old female with history of osteoarthritis. Polysubstance abuse. SVT. She presents to the hospital due to left-sided chest pain radiating to the left arm all day long 6 out of 10 in severity with atypical features. Patient admitted under observation to rule out acute coronary syndrome. Patient also admits to social use of heroin, mass, and cocaine. She denies any family history of premature CAD. EKG in the ED showed T wave inversion in lead V1 V2 and V3, troponins are negative Plan: #Chest pain with atypical features to rule out ACS Nitro sublingual when necessary Continue with metoprolol Trend troponins and cardiac enzymes EKG showed T wave inversion in leads V1 and V2 V3 Cardiology consult Continue with aspirin Statin on hold due to elevated liver enzymes #Polysubstance abuse Patient counseled to quit drug of abuse #Anxiety and depression Continue with home medications Add Xanax when necessary for anxiety #Elevated liver enzymes Check hepatitis panel Hold statin #DVT prophylaxis Heparin subcu 3 times a day Surrogate decision-maker: Patient's mother CODE STATUS: Full code Discussed with: Patient, ER, RN Anticipated discharge: [address]: Home A total of 55 minutes was spent on the care of this complex patient more than 50 % of the time was spent in counseling and care coordination.
[2017-11-15] MEDS: HEPARIN SODIUM,PORCINE 5,000 UNIT/ML 1 ML VIAL SQ SCH ×2 (01:03→12:36)
[2017-11-15] MEDS: METOPROLOL SUCCINATE (ER) 25 MG TAB.ER.24H PO SCH ×2 (01:12→12:34)
[2017-11-15] MEDS: busPIRone HCl 5 MG TAB PO SCH ×2 (01:12→12:34)
[2017-11-15 03:36] LABS: Cholesterol 180 mg/dL (<200); HDL Cholesterol 72 mg/dL (40-60); LDL Cholesterol,Calculated 90 mg/dL (0-99); Triglycerides 91 mg/dL (<150)
[2017-11-15 04:06] LABS: Creatine Kinase <20 U/L (30-135)
[2017-11-15 04:19] LABS: Creatine Kinase MB <0.2 ng/mL (0.0-2.4); Troponin I <0.012 ng/mL (0.000-0.034)
--- NOTE | 2017-11-15 08:32 | CONS ---
CONSULTATION This is a 42-year-old lady who came into the hospital with some discomfort in the chest. She describes this is a sharp pain, twisting in nature, persisting, radiates to the left arm, not consistently associated with nausea. She also has some on uncomfortable feeling in the chest, sometimes when she does physical activity. She was advised to have a stress test but she did not follow through with this advice in June. About 5 years ago, she had a stress test that was normal. She smokes cigarettes but much less. She has quit 2 years ago, but she still continues to smoke off and on. She uses cocaine, marijuana and methamphetamine. Last time she used these drugs was about 3 weeks ago. At the time of my evaluation, she is resting comfortably without symptoms. EKG revealed nonspecific T-wave inversion in precordial leads. Troponins are normal. Quality of the pain seems atypical but persistent. PAST MEDICAL HISTORY: 1. Osteoarthritis. 2. Pneumonia. She is status post bowel surgery, breast surgery, cholecystectomy, hernia repair and some orthopedic surgery. She also has some cervical spine surgery, details are unclear. Gastric bypass surgery as well. MEDICATIONS AT HOME INCLUDE: Naprosyn, ranitidine, Zoloft. She is allergic to KEFLEX, CIPROFLOXACIN, and SULFA as well as COMPAZINE. PHYSICAL EXAMINATION: Blood pressure is 120/70, pulse rate is 70 per minute, regular. HEENT: Unremarkable. Fundus was not examined by me. NECK: Supple. No JVD. I do not hear a carotid bruit. There is no thyromegaly. Heart exam reveals S1, S2 heard normally without a rub murmur or gallop. Lungs are clear. Abdomen is soft, nontender. Lower extremities reveal normal pulses. No edema. Central nervous system is normal. EKG revealed sinus mechanism with T-wave inversion in leads V1 to V3, V1 to V4, which I believe are nonspecific. LABORATORY DATA: Revealed unremarkable troponins. IMPRESSION: 1. Atypical chest pain. 2. History of osteoarthritis. 3. Abnormal liver function tests. 4. History of multiple surgeries, including cervical spine surgery. RECOMMENDATIONS: I am recommending an echocardiogram as well as a stress echo and if these are normal, she can be discharged. Patient has been counseled regarding the need to quit smoking and also polysubstance abuse. Based on the findings of the stress test, we will make further recommendation and if stress tests are normal, she can be discharged. Thank you very much for the consult. FLORENTINO / LÓPEZN: [id number] /
[2017-11-15] MEDS ORDERED: METOPROLOL SUCCINATE (ER) 25 MG TAB.ER.24H PO SCH (09:00)
[2017-11-15] MEDS ORDERED: ASPIRIN 325 MG TAB PO SCH (09:00)
[2017-11-15] MEDS ORDERED: busPIRone HCl 5 MG TAB PO SCH (09:00)
[2017-11-15 09:52] LABS: Creatine Kinase <20 U/L (30-135)
[2017-11-15 10:05] LABS: Creatine Kinase MB <0.2 ng/mL (0.0-2.4); Troponin I <0.012 ng/mL (0.000-0.034)
[2017-11-15 11:33] LABS: Hepatitis A Antibody IgM Non-Reactive (Non-Reactive); Hepatitis B Core IgM Non-Reactive (Non-Reactive)
[2017-11-15 12:11] VITALS: BP 97/60; PULSE 71; RESP 18; TEMP 97.6
--- NOTE | 2017-11-15 12:24 | ECHOF ---
Referral Reason:cp MEASUREMENTS -------- HEIGHT: 170.2 cm WEIGHT: 68.0 kg BP: 132/78 RVIDd: 3.2 cm (< 3.3) IVSd: 0.9 cm (0.6 - 1.1) LVIDd: 4.4 cm (3.9 - 5.3) LVPWd: 1.0 cm (0.6 - 1.1) IVSs: 1.5 cm LVIDs: 2.9 cm LVPWs: 1.5 cm LAESV Index (A-L): 36.73 ml/m Ao Diam: 2.9 cm (2.0 - 3.7) AV Cusp: 2.1 cm (1.5 - 2.6) LA Diam: 3.7 cm (2.7 - 3.8) EPSS: 0.5 cm MV E Niels: 0.84 m/s MV DecT: 300 ms MV A Niels: 0.84 m/s MV E/A Ratio: 1.00 RAP: 5.00 mmHg RVSP: 24.09 mmHg MV EF SLOPE: 88.86 mm/s (70 - 150) MV EXCURSION: 1.90 cm (> 18.000) FINDINGS -------- Sinus rhythm. This was a technically good study. The left ventricular size is normal. Left ventricular wall thickness is normal. Overall left vent ricular systolic function is normal with, an EF between 55 - 60 %. The right ventricle is normal in size and function. LA is moderately dilated 34-39 ml/m2 RA appears enlarged. Aortic valve is trileaflet and is mildly thickened. Trace amount of aortic regurgitation. There is no evidence of aortic stenosis. The mitral valve leaflets are mildly thickened. Mild mitral annular calcification present. Mild m itral regurgitation is present. Trace tricuspid regurgitation present. Right ventricular systolic pressure is normal at < 35 mmHg. There is no evidence of pulmonary hypertension. Trace/mild (physiologic) pulmonic regurgitation. The aortic root size is normal. Normal inferior vena cava with normal inspiratory collapse consistent with estimated right atrial pre ssure of 5 mmHg. There is no pericardial effusion. CONCLUSIONS -------- 1. Sinus rhythm. 2. This was a technically good study. 3. The left ventricular size is normal. 4. Left ventricular wall thickness is normal. 5. Overall left ventricular systolic function is normal with, an EF between 55 - 60 %. 6. LA is moderately dilated 34-39 ml/m2 7. RA appears enlarged. 8. Aortic valve is trileaflet and is mildly thickened. 9. Trace amount of aortic regurgitation. 10. The mitral valve leaflets are mildly thickened. 11. Mild mitral annular calcification present. 12. Mild mitral regurgitation is present. 13. Trace tricuspid regurgitation present. 14. Right ventricular systolic pressure is normal at < 35 mmHg. 15. There is no evidence of pulmonary hypertension. 16. Trace/mild (physiologic) pulmonic regurgitation. 17. The aortic root size is normal. 18. There is no pericardial effusion. [employer] SUPERVISOR: Masood Pastor RDCS
--- NOTE | 2017-11-15 14:10 | ECHOS ---
STRESS ECHOCARDIOGRAM INDICATIONS: Chest pain. BASELINE HEART RATE: 57 BASELINE BLOOD PRESSURE: 197/94 MAXIMUM HEART RATE: 136 MAXIMUM BLOOD PRESSURE: 175/62 85% MPHR: 150 100% MPHR: 176 METS: 11.1 MAXIMUM STAGE REACHED: 4 TOTAL EXERCISE TIME: 10:30 CLINICAL INFORMATION: Baseline EKG revealed sinus bradycardia without any acute changes. Patient walked on a standard Graham protocol for 10:30 minutes, achieved a maximal heart rate of 136 beats per minute which is 77% of predicted maximum. She had taken a beta shaila. Technically, this is an inconclusive stress test because of inadequate chronotropic response but at a fairly good exercise capacity. There is no evidence suggesting ischemia on this EKG stress test. Baseline echo images revealed normal wall motion and wall thickening of all segments. At peak exercise, with a heart rate of 136 beats per minute which is less than 85% of predicted maximal, there was good augmentation of left ventricular wall motion and wall thickening of all segments suggesting that there is no stress-induced ischemia at the above-mentioned suboptimal heart rate response. IMPRESSION: 1. Excellent exercise capacity. 2. Technically an inconclusive stress test because of inadequate chronotropic response secondary to beta blockers but at a heart rate of 136 beats per minute, there was no evidence of any EKG changes to indicate ischemia. Patient did not have any angina and the stress echocardiogram did not reveal ischemia at a heart rate of 135 beats per minute. FLORENTINO / LÓPEZN: [id number] /
--- NOTE | 2017-11-15 15:14 | P.DS ---
Providers Date of admission: 11/14/17 21:55 Expected date of discharge: 11/15/17 Attending physician: Rashmi Arellano MD Consults: 11/14/17 21:52 Consult Physician Urgent Consulting Provider: [facility] Consult Reason/Comments: chest pain Do you want consulting provider notified?: Yes, Notify in am Primary care physician: Lisa Echeverria MD - Discharge Diagnosis(es) (1) Non-cardiac chest pain Current Visit: Yes Status: Acute (2) Hepatitis C antibody positive in blood Current Visit: Yes Status: Acute (3) H/O supraventricular tachycardia Current Visit: Yes Status: Acute Hospital Course: Patient is a 42-year-old female with a past medical history of mitral valve prolapse, SVT with PVCs, pancreatitis, and illicit drug use who presented to the hospital with complaints of chest pain. In the ER she underwent an extensive evaluation. Her vital signs were within normal limits on arrival. Initial laboratory analysis showed an elevated AST, ALP, and alkaline phosphatase. She received a dose of aspirin in the emergency department and was admitted for observation. She was seen by cardiology the next day and underwent an echocardiogram and stress test. Exercise stress echo showed excellent exercise capacity and no signs of clinical ischemia, but she did not reach adequate heart rate of 136 bpm. Echocardiogram showed a preserved ejection fraction and no significant abnormalities. Cholesterol profile was within normal limits with an elevated HDL of 72. She did have hepatitis C antibody come back positive. This was discussed with the patient in detail. She was given written information regarding hepatitis C. We also discussed the fact that she will need a confirmatory tests with hepatitis C RNA level as 20-40 % of people are able to clear the infection on their own. I have also instructed her to follow-up with Dr. Chavez or Onofre for further evaluation. Cardiology has asked her to follow-up in 2 weeks. She was subsequently discharged home in stable condition. I again reiterated to her the importance of abstaining from illicit substances. Patient seen and examined at bedside. No recurrent chest pain or shortness of breath. Feeling back to baseline. All questions answered regarding hepatitis C. Vital signs reviewed and stable. General: non toxic, no distress, appears at stated age Derm: warm, dry Head: atraumatic, normocephalic, symmetric Eyes: EOMI, no lid lag, anicteric sclera Mouth: no lip lesion, mucus membranes moist Cardiovascular: S1S2 reg, no murmur, positive posterior tibial pulse bilateral, Lungs: CTA bilateral, no rhonchi, no rales , no accessory muscle use Abdominal: soft, nontender to palpation, no guarding, no appreciable organomegaly Ext: no gross muscle atrophy, no edema, no contractures Neuro: CN II-XI grossly intact, no focal neuro deficits Psych: Alert, oriented, appropriate affect A total of 25 minutes of time were spent preparing this complex discharge summary . Pertinent Studies: Exercise stress echo showed excellent exercise capacity and no signs of clinical ischemia, but she did not reach adequate heart rate of 136 bpm. Echocardiogram showed a preserved ejection fraction and no significant abnormalities. Patient Condition at Discharge: Good Plan - Discharge Summary Discharge Rx Participant: No New Discharge Prescriptions: New Aspirin EC [Ecotrin Low Dose] 81 mg PO DAILY #30 tablet.dr Singer Sertraline [Zoloft] 100 mg PO HS Ranitidine HCl [Zantac] 75 mg PO HS busPIRone HCL [Buspar] 15 mg PO BID Metoprolol Succinate [Toprol XL] 25 mg PO HS Discharge Medication List Ranitidine HCl [Zantac] 75 mg PO HS 11/23/16 [History] Sertraline [Zoloft] 100 mg PO HS 11/23/16 [History] Metoprolol Succinate [Toprol XL] 25 mg PO HS 11/14/17 [History] busPIRone HCL [Buspar] 15 mg PO BID 11/14/17 [History] Aspirin EC [Ecotrin Low Dose] 81 mg PO DAILY #30 tablet. 11/15/17 [Rx] Follow up Appointment(s)/Referral(s): Lisa Echeverria MD [Primary Care Provider] - 1-2 days Nolvia Padilla MD [STAFF PHYSICIAN] - 11/22/17 3:15 pm Patient Instructions/Handouts: Hepatitis C (GEN) Activity/Diet/Wound Care/Special Instructions: heart healthy diet Activity as tolerated abstain from illicit drugs, don't share needles. Discharge Disposition: HOME SELF-CARE
[2017-11-15] MEDS ORDERED: ATORVASTATIN 40 MG TAB PO SCH (21:00)
== END 2017-11-15 14:55 | disposition home or self-care (01) ==
LOC: EC 20:49 → 3OBS 21:55
PROVIDERS: ADMIT Internal Medicine; ATTEND Internal Medicine
DX: R07.89 Other chest pain (principal); R74.0 Nonspecific elevation of levels of transaminase and lactic acid dehydrogenase [LDH]; F19.10 Other psychoactive substance abuse, uncomplicated; F41.9 Anxiety disorder, unspecified; B19.20 Unspecified viral hepatitis C without hepatic coma; I47.1 Supraventricular tachycardia; I34.1 Nonrheumatic mitral (valve) prolapse; I49.3 Ventricular premature depolarization; R74.8 Abnormal levels of other serum enzymes; F32.9 Major depressive disorder, single episode, unspecified; M19.90 Unspecified osteoarthritis, unspecified site; Z87.01 Personal history of pneumonia (recurrent); Z98.0 Intestinal bypass and anastomosis status; Z90.49 Acquired absence of other specified parts of digestive tract; F17.210 Nicotine dependence, cigarettes, uncomplicated; Z79.899 Other long term (current) drug therapy; Z88.2 Allergy status to sulfonamides; Z88.8 Allergy status to other drugs, medicaments and biological substances; Z88.1 Allergy status to other antibiotic agents; Z91.040 Latex allergy status; Z98.84 Bariatric surgery status; Z79.1 Long term (current) use of non-steroidal anti-inflammatories (NSAID)
CPT/HCPCS: 99285 ×2; 96374 ×2; 96361 ×5; 96372; 36415; 93306; 93351; 80061; 80053; 80074; 82550; 82553; 83735; 84484 ×2; 85025; 85610; 85730; 81025; 71046; G0378 ×2; J1644; J2405

== ENCOUNTER → 2018-01-28 | Outpatient (CLI) | payer OTHER ==
[2018-01-28 13:43] LABS: Basophils # (A) 0.1 k/uL (0-0.2); Basophils % (A) 1 %; Eosinophils # (A) 0.2 k/uL (0-0.7); Eosinophils % (A) 3 %; HCT 34.9 % (34.0-46.0); HGB 11.1 gm/dL (11.4-16.0); Lymphocytes % (A) 50 %; MCH 27.5 pg (25.0-35.0); MCHC 31.9 g/dL (31.0-37.0); MCV 86.2 fL (80.0-100.0); Mean Platelet Volume 6.5; Monocytes # (A) 0.5 k/uL (0-1.0); Monocytes % (A) 8 %; Neutrophils # (A) 2.2 k/uL (1.3-7.7); Neutrophils % (A) 37 %; Platelet Count 304 k/uL (150-450); RBC 4.04 m/uL (3.80-5.40); RDW 15.6 % (11.5-15.5)
[2018-01-28 14:22] LABS: ALT 88 U/L (9-52); AST 70 U/L (14-36); Albumin 3.7 g/dL (3.5-5.0); Alkaline Phosphatase 107 U/L (38-126); Anion Gap 10 mmol/L; Blood Urea Nitrogen 10 mg/dL (7-17); Calcium 9.2 mg/dL (8.4-10.2); Carbon Dioxide 23 mmol/L (22-30); Chloride 106 mmol/L (98-107); Glucose 101 mg/dL (74-99); Potassium 3.9 mmol/L (3.5-5.1); Sodium 139 mmol/L (137-145); Total Bilirubin 0.2 mg/dL (0.2-1.3); Total Protein 6.4 g/dL (6.3-8.2)
== END | disposition home or self-care (01) ==
LOC: LABWHC1 13:13
PROVIDERS: ATTEND Family Medicine
DX: B19.20 Unspecified viral hepatitis C without hepatic coma (principal)
CPT/HCPCS: 36415; 80053; 85025

== ENCOUNTER → 2018-02-15 | Outpatient (CLI) | payer OTHER ==
[2018-02-15 09:55] LABS: Basophils % (A) 0 %; Eosinophils # (A) 0.2 k/uL (0-0.7); Eosinophils % (A) 3 %; HCT 38.3 % (34.0-46.0); HGB 12.4 gm/dL (11.4-16.0); Lymphocytes # (A) 2.3 k/uL (1.0-4.8); Lymphocytes % (A) 41 %; MCH 27.5 pg (25.0-35.0); MCHC 32.5 g/dL (31.0-37.0); MCV 84.8 fL (80.0-100.0); Mean Platelet Volume 6.9; Monocytes # (A) 0.4 k/uL (0-1.0); Monocytes % (A) 7 %; Neutrophils # (A) 2.6 k/uL (1.3-7.7); Neutrophils % (A) 46 %; Platelet Count 305 k/uL (150-450); RBC 4.51 m/uL (3.80-5.40); RDW 15.9 % (11.5-15.5); WBC 5.6 k/uL (3.8-10.6)
[2018-02-15 10:14] LABS: Albumin 4.1 g/dL (3.5-5.0); Bilirubin, Delta 0.4 mg/dL (0.0-0.2); Total Bilirubin 0.4 mg/dL (0.2-1.3); Total Protein 7.1 g/dL (6.3-8.2)
--- NOTE | 2018-02-15 14:14 | US ---
EXAMINATION TYPE: US abdomen limited DATE OF EXAM: 02/15/2018 COMPARISON: CT, US CLINICAL HISTORY: B18.2 Chronic Hepatitis C. Multiple abdominal surgeries with large midline scar; ga llbladder removed; gastric bypass and reversal; mesenteric hernia repairs per patient. EXAM MEASUREMENTS: Liver Length: 13.7 cm Gallbladder Wall: surgically removed CBD: 0.8 cm Right Kidney: 10.4 x 5.2 x 4.2 cm Pancreas: wnl as imaged; tail not seen due to overlying bowel gas Liver: no masses seen Gallbladder: surgically absent Evidence for sonographic Cheung's sign: no CBD: Prominence of the common bile duct likely due to post cholecystectomy Right Kidney: No hydronephrosis or masses seen There is no ascites. IMPRESSION: Somewhat limited exam. Postop change.
== END | disposition home or self-care (01) ==
LOC: RADUSWWP 08:20
PROVIDERS: ATTEND Internal Medicine Gastroenterology
DX: B18.2 Chronic viral hepatitis C (principal); Z98.890 Other specified postprocedural states
CPT/HCPCS: 36415; 76705; 80076; 85025; 87522

== ENCOUNTER 2018-02-18 01:30 | Emergency (ER) | payer OTHER ==
[2018-02-18 01:42] VITALS: BP 151/100; PULSE 82; RESP 20; TEMP 98.5
--- NOTE | 2018-02-18 01:53 | ED ---
Lower Extremity Injury HPI - General Source: patient, RN notes reviewed Mode of arrival: ambulatory Limitations: no limitations <Ilda Quevedo - Last Filed: 02/18/18 02:27> <Gianna Escobar - Last Filed: 02/18/18 05:18> - General Chief Complaint: Extremity Injury, Lower Stated Complaint: Foot injury-[facility] Time Seen by Provider: 02/18/18 01:45 - History of Present Illness Initial Comments: This is a 42-year-old female who presents to the emergency department with chief complaint work-related left foot injury. Patient states yesterday morning at approximately 4 AM she was working at [employer]. She states that an acrylic fencing fell from approximately 6 feet up and landed on her left foot. She states that she initially believed she had bruised the foot but pain has increased since that time. She states that she has been trying to stay off of the foot as pain is increased with bearing weight and ambulating. Denies any other injuries or trauma. States that she does have some tingling in the toes. Denies recent fevers or chills, chest pain shortness of breath, abdominal pain , nausea or vomiting. (Ilda Quevedo) I was available for consultation in the emergency department. The history and physical exam were done by the Midlevel Provider. Medical decision making was done by the Midlevel Provider. The Midlevel Provider did not contact me for this patient's care. I was not directly involved in this patient's care. (Gianna Escobar) - Related Data Home Medications Medication Instructions Recorded Confirmed Ranitidine HCl [Zantac] 75 mg PO HS 11/23/16 02/18/18 Sertraline [Zoloft] 100 mg PO HS 11/23/16 02/18/18 Metoprolol Succinate [Toprol XL] 25 mg PO HS 11/14/17 02/18/18 busPIRone HCL [Buspar] 15 mg PO BID 11/14/17 02/18/18 Previous Rx's Medication Instructions Recorded Aspirin EC [Ecotrin Low Dose] 81 mg PO DAILY #30 tablet. 11/15/17 Allergies Allergy/AdvReac Type Severity Reaction Status Date / Time cephalexin monohydrate Allergy Rash/Hives Verified 02/18/18 01:41 [From Keflex] ciprofloxacin [From Cipro] Allergy Rash/Hives Verified 02/18/18 01:41 ciprofloxacin HCl Allergy Rash/Hives Verified 02/18/18 01:41 [From Cipro] Latex, Natural Rubber Allergy Itching Verified 02/18/18 01:41 prochlorperazine edisylate Allergy SEVERE Verified 02/18/18 01:41 [From Compazine] ANXIETY prochlorperazine maleate Allergy SEVERE Verified 02/18/18 01:41 [From Compazine] ANXIETY sulfamethoxazole Allergy Rash/Hives Verified 02/18/18 01:41 [From Bactrim] trimethoprim [From Bactrim] Allergy Rash/Hives Verified 02/18/18 01:41 gabapentin AdvReac Hallucinati Verified 02/18/18 01:41 ons Review of Systems ROS Other: All systems not noted in ROS Statement are negative. <Ilda Quevedo - Last Filed: 02/18/18 02:27> ROS Other: All systems not noted in ROS Statement are negative. <Gianna Escobar - Last Filed: 02/18/18 05:18> ROS Statement: Those systems with pertinent positive or pertinent negative responses have been documented in the HPI. Past Medical History Past Medical History: Osteoarthritis (OA), Pneumonia Additional Past Medical History / Comment(s): BOWEL OBSTRUCTION, PANCREATITIS, INTUSSUSCEPTION, HYDRONEPHROSIS, DEGENERATIVE DISC DISEASE, BULGING DISC, neutropenia, anemia, mitral valve prolapse, occasional heart palpitaions, SVT- PVC's History of Any Multi-Drug Resistant Organisms: None Reported Past Surgical History: Bowel Resection, Breast Surgery, Section, Cholecystectomy, Hernia Repair, Hysterectomy, Orthopedic Surgery, Tonsillectomy Additional Past Surgical History / Comment(s): CERVICAL FUSION, EXPLORATORY LAPAROTOMY - REMOVAL OF ECTOPIC , DANNA-N-Y GASTIC BYPASS, ABDOMINOPLASTY, BREAST BIOPSY AND REDUCTION, bilateral knee arthoscopy, " Gastric bypass reversal enoch morgan during procedure 03/26 04/02 pancreatitis, left knee, myelogram Past Anesthesia/Blood Transfusion Reactions: No Reported Reaction Past Psychological History: Anxiety, Depression Smoking Status: Former smoker Past Alcohol Use History: Occasional Past Drug Use History: None Reported - Past Family History Mother Family Medical History: No Reported History <Ilda Quevedo - Last Filed: 02/18/18 02:27> General Exam Limitations: no limitations <Ilda Quevedo - Last Filed: 02/18/18 02:27> <Gianna Escobar - Last Filed: 02/18/18 05:18> - General Exam Comments Initial Comments: General: Awake and alert, well-developed; in no apparent distress. HEENT: Head atraumatic, normocephalic. Pupils are equal, round and reactive to light. Extraocular movements intact. Oropharynx moist without erythema or exudate. Neck: Supple. Normal ROM. Cardiovascular: Regular rate and rhythm. No murmurs, rubs or gallops. Chest symmetrical. Respiratory: Lungs clear to auscultation bilaterally. No wheezes, rales or rhonchi. Normal respiratory effort with no use of accessory muscles. Musculoskeletal: Normal range of motion of the left ankle and foot. There is tenderness and ecchymosis over the distal second and third metatarsals. Sensation is intact. Pedal pulses are 2+ equal and palpable bilaterally. No obvious gross deformities. Skin: [place], warm and dry without rashes. Neurological: Alert and oriented x3. CN II-XII grossly intact. Speech is fluent and answers are appropriate. No focal neuro deficits. Psychiatric: Normal mood and affect. No overt signs of depression or anxiety noted. (Ilda Quevedo) Vital Signs 02/18/18 01:37 Temperature 98.5 F Pulse Rate 82 Respiratory 20 Rate Blood Pressure 151/100 O2 Sat by Pulse 98 Oximetry Medical Decision Making - Radiology Data Radiology results: report reviewed, image reviewed <Ilda Quevedo - Last Filed: 02/18/18 02:27> <Gianna Escobar - Last Filed: 02/18/18 05:18> - Medical Decision Making This is a 42-year-old female who presents to the emergency department with chief complaint of left foot injury. She reports acrylic siding falling onto her left foot while at work at 4 AM yesterday. She reports pain with bearing weight and ambulating. X-ray was obtained which reveals no acute fractures or dislocations. Patient suffering from foot contusion. Recommended rest, ice, elevation and Tylenol or ibuprofen as needed for pain. Recommended repeat x- rays in 7-10 days if pain persists. Vitals are stable and she is in no acute distress. She will be discharged home at this time. She is in agreement and voices understanding. All questions were answered. (Ilda Quevedo) - Radiology Data X-ray left foot impression: Negative exam. (Ilda Quevedo) Disposition Is patient prescribed a controlled substance at d/c from ED?: No Time of Disposition: 02:30 <Ilda Quevedo - Last Filed: 02/18/18 02:27> <Gianna Escobar - Last Filed: 02/18/18 05:18> Clinical Impression: Foot contusion Disposition: HOME SELF-CARE Condition: Good Instructions: Foot Contusion (ED) Additional Instructions: Please follow-up with your primary care provider and/or orthopedics for repeat x -rays if pain persists began 7-10 days. Please rest, ice, elevate and take ibuprofen or Tylenol as needed for pain. Please follow up with primary care provider within 1-2 days. Return to emergency department if symptoms should worsen or any concerns arise. Referrals: Lisa Echeverria MD [Primary Care Provider] - 1-2 days Daren Ash MD [Medical Doctor] - 1-2 days
--- NOTE | 2018-02-18 02:13 | XR ---
EXAMINATION TYPE: XR foot complete LT DATE OF EXAM: 02/18/2018 COMPARISON: NONE HISTORY: Left foot pain TECHNIQUE: 3 views FINDINGS: I see no fracture nor dislocation. Joint spaces are normal. Metatarsals are intact. IMPRESSION: Negative left foot exam.
== END 2018-02-18 02:43 | disposition home or self-care (01) ==
LOC: EC 01:30
DX: S90.32XA Contusion of left foot, initial encounter (principal); F32.9 Major depressive disorder, single episode, unspecified; F41.9 Anxiety disorder, unspecified; Z87.891 Personal history of nicotine dependence; Z79.899 Other long term (current) drug therapy; Z88.2 Allergy status to sulfonamides; Z88.1 Allergy status to other antibiotic agents; Z88.8 Allergy status to other drugs, medicaments and biological substances; Z91.040 Latex allergy status; W20.8XXA Other cause of strike by thrown, projected or falling object, initial encounter; Y92.69 Other specified industrial and construction area as the place of occurrence of the external cause; Y99.0 Civilian activity done for income or pay
CPT/HCPCS: 99283

== ENCOUNTER → 2018-04-11 | Outpatient (CLI) | payer OTHER ==
[2018-04-11 17:10] LABS: Basophils % (A) 1 %; Eosinophils # (A) 0.3 k/uL (0-0.7); Eosinophils % (A) 4 %; HCT 40.2 % (34.0-46.0); HGB 13.5 gm/dL (11.4-16.0); Lymphocytes # (A) 2.6 k/uL (1.0-4.8); Lymphocytes % (A) 41 %; MCHC 33.6 g/dL (31.0-37.0); MCV 86.2 fL (80.0-100.0); Mean Platelet Volume 6.9; Monocytes # (A) 0.3 k/uL (0-1.0); Monocytes % (A) 5 %; Neutrophils % (A) 47 %; Platelet Count 293 k/uL (150-450); RBC 4.67 m/uL (3.80-5.40); WBC 6.3 k/uL (3.8-10.6)
[2018-04-13 03:36] LABS: ALT 16 U/L (8-44); AST 26 U/L (13-35); Albumin/Globulin Ratio 2.05 (1.20-2.10); Alkaline Phosphatase 108 U/L (41-126); Bilirubin, Conjugated <0.20 mg/dL (0.20-0.40); Globulin 2.2 g/dL (2.1-3.7); Total Bilirubin 0.2 mg/dL (0.2-1.2); Total Protein 6.7 g/dL (6.2-8.2)
== END ==
LOC: LABWHC1 16:37
PROVIDERS: ATTEND Physician Assistant
DX: B18.2 Chronic viral hepatitis C (principal)
CPT/HCPCS: 36415; 80074; 80076; 85025; 87522

== ENCOUNTER 2019-02-04 23:25 | Emergency (ER) | payer OTHER ==
[2019-02-04 23:32] VITALS: TEMP 98.1
--- NOTE | 2019-02-05 00:58 | XR ---
EXAM: XR Left Foot Complete, 3 or More Views CLINICAL HISTORY: ITS.REASON XR Reason: Foot pain/trauma 1 week ago TECHNIQUE: Frontal, lateral and oblique views of the left foot. COMPARISON: 02/18/18 FINDINGS: Bones/joints: No acute fracture. No dislocation. Soft tissues: Unremarkable. No radiopaque foreign body. IMPRESSION: No acute osseous abnormalities.
--- NOTE | 2019-02-05 01:26 | ED ---
Lower Extremity Injury HPI - General Chief Complaint: Extremity Injury, Lower Stated Complaint: Lft Foot Injury Time Seen by Provider: 02/05/19 00:06 Source: patient, family Mode of arrival: ambulatory - History of Present Illness Initial Comments: 43-year-old female patient presents to the emergency department today for evaluation of left foot pain. Patient states one week ago she ran it over with a full cart at work. Patient states that she has been having pain to the ball of her foot since. States that worsens with ambulation. Denies any numbness or tingling to the foot or toes. Denies any previous injury to this foot. Denies any redness or swelling. Denies fever or chills. She did not have this evaluated initially. States that she has been taking Aleve for pain control however does not seem to be helping.Patient denies any headache, neck pain, back pain, chest pain, shortness of breath, dizziness, weakness, abdominal pain, nausea, vomiting, or difficulties with bowel movements or urination. - Related Data Home Medications Medication Instructions Recorded Confirmed Ranitidine HCl [Zantac] 75 mg PO HS 11/23/16 02/18/18 Sertraline [Zoloft] 100 mg PO HS 11/23/16 02/18/18 Metoprolol Succinate [Toprol XL] 25 mg PO HS 11/14/17 02/18/18 busPIRone HCL [Buspar] 15 mg PO BID 11/14/17 02/18/18 Previous Rx's Medication Instructions Recorded Aspirin EC [Ecotrin Low Dose] 81 mg PO DAILY #30 tablet. 11/15/17 Allergies Allergy/AdvReac Type Severity Reaction Status Date / Time cephalexin monohydrate Allergy Rash/Hives Verified 02/04/19 23:32 [From Keflex] ciprofloxacin [From Cipro] Allergy Rash/Hives Verified 02/04/19 23:32 ciprofloxacin HCl Allergy Rash/Hives Verified 02/04/19 23:32 [From Cipro] Latex, Natural Rubber Allergy Itching Verified 02/04/19 23:32 prochlorperazine edisylate Allergy SEVERE Verified 02/04/19 23:32 [From Compazine] ANXIETY prochlorperazine maleate Allergy SEVERE Verified 02/04/19 23:32 [From Compazine] ANXIETY sulfamethoxazole Allergy Rash/Hives Verified 02/04/19 23:32 [From Bactrim] trimethoprim [From Bactrim] Allergy Rash/Hives Verified 02/04/19 23:32 gabapentin AdvReac Hallucinati Verified 02/04/19 23:32 ons Review of Systems ROS Statement: Those systems with pertinent positive or pertinent negative responses have been documented in the HPI. ROS Other: All systems not noted in ROS Statement are negative. Past Medical History Past Medical History: Osteoarthritis (OA), Pneumonia Additional Past Medical History / Comment(s): BOWEL OBSTRUCTION, PANCREATITIS, INTUSSUSCEPTION, HYDRONEPHROSIS, DEGENERATIVE DISC DISEASE, BULGING DISC, neutropenia, anemia, mitral valve prolapse, occasional heart palpitaions, SVT- PVC's History of Any Multi-Drug Resistant Organisms: None Reported Past Surgical History: Bowel Resection, Breast Surgery, Section, Cholecystectomy, Hernia Repair, Hysterectomy, Orthopedic Surgery, Tonsillectomy Additional Past Surgical History / Comment(s): CERVICAL FUSION, EXPLORATORY LAPAROTOMY - REMOVAL OF ECTOPIC , DANNA-N-Y GASTIC BYPASS, ABDOMINOPLASTY, BREAST BIOPSY AND REDUCTION, bilateral knee arthoscopy, "Gastric bypass reversal enoch morgan during procedure 03/26 04/02 pancreatitis, left kn ee, myelogram Past Anesthesia/Blood Transfusion Reactions: No Reported Reaction Past Psychological History: Anxiety, Depression Smoking Status: Former smoker Past Alcohol Use History: Occasional Past Drug Use History: None Reported - Past Family History Mother Family Medical History: No Reported History General Exam General appearance: alert, in no apparent distress, other (Physical well- developed, well-nourished adult female patient in no acute distress. Vital signs upon presentation are temperature 98.1F, pulse 91, respirations 20, blood pressure 137/87, pulse ox 98% on room air.) Eye exam: Present: normal appearance, PERRL, EOMI. Absent: scleral icterus, conjunctival injection, periorbital swelling ENT exam: Present: normal exam, normal oropharynx, mucous membranes moist Respiratory exam: Present: normal lung sounds bilaterally. Absent: respiratory distress, wheezes, rales, rhonchi, stridor Cardiovascular Exam: Present: regular rate, normal rhythm, normal heart sounds. Absent: systolic murmur, diastolic murmur, rubs, gallop, clicks Extremities exam: Present: normal inspection, full ROM, tenderness (Tenderness over the dorsal aspect of the left foot), normal capillary refill, other (Skin to the left foot is pink, warm, dry. Cap refills less than 3 seconds. Pedal and posttibial pulses are 2+ and equal bilaterally. There is no tenderness surrounding the ankle. There is no ecchymosis or swelling noted.). Absent: pedal edema, joint swelling, calf tenderness Neurological exam: Present: alert, oriented X3, CN II-XII intact Psychiatric exam: Present: normal affect, normal mood Skin exam: Present: warm, dry, intact, normal color. Absent: rash Course Vital Signs 02/04/19 02/05/19 23:28 01:36 Temperature 98.1 F Pulse Rate 91 72 Respiratory 20 16 Rate Blood Pressure 137/87 131/85 O2 Sat by Pulse 98 97 Oximetry Medical Decision Making - Medical Decision Making 43-year-old female patient presents to the emergency department today for evaluation of left foot pain after an injury 1 week ago. Physical examination is unremarkable other than some tenderness over the dorsal aspect of the foot. Neurovascular status is intact. X-ray was obtained and showed no acute abnormalities. Did discuss sprain as a cause for her symptoms. She'll be given an Steven wrap. She is instructed to continue home medications for pain control. She is instructed to rest, ice, elevate the foot. She is instructed to follow- up with her primary care physician for recheck in 1-2 days. Return parameters were discussed in detail. She verbalizes understanding and agrees with this plan. - Radiology Data Radiology results: report reviewed, image reviewed 3 views of the left foot are obtained. Report was reviewed in its entirety. Impression by Dr. Obrien shows no acute osseous abnormalities Disposition Clinical Impression: Left foot pain Disposition: HOME SELF-CARE Condition: Good Instructions (If sedation given, give patient instructions): Foot Sprain (ED) Additional Instructions: Rest, ice, elevate the foot. Take tylenol and your anti-inflammatory for pain control. Follow up with your primary care physician for recheck in 1-2 days. Return to the emergency department immediately for any new, worsening, or concerning symptoms. Is patient prescribed a controlled substance at d/c from ED?: No Referrals: Nonstaff,Physician [Primary Care Provider] - 1-2 days Time of Disposition: 01:26
[2019-02-05 01:37] VITALS: BP 131/85; PULSE 72; RESP 16
== END 2019-02-05 01:38 | disposition home or self-care (01) ==
LOC: EC 23:25
DX: M25.572 Pain in left ankle and joints of left foot (principal); F41.9 Anxiety disorder, unspecified; F32.9 Major depressive disorder, single episode, unspecified; Z79.899 Other long term (current) drug therapy; Z88.1 Allergy status to other antibiotic agents; Z88.2 Allergy status to sulfonamides; Z91.040 Latex allergy status; Z91.048 Other nonmedicinal substance allergy status; Z88.8 Allergy status to other drugs, medicaments and biological substances; Z87.891 Personal history of nicotine dependence; Z98.84 Bariatric surgery status; Z98.1 Arthrodesis status
CPT/HCPCS: 99283

== ENCOUNTER 2019-05-01 21:46 | Emergency (ER) | payer OTHER ==
[2019-05-01 21:49] VITALS: RESP 16; TEMP 98.1
[2019-05-01] MEDS ORDERED: SODIUM CHLORIDE 0.9% 1,000 ML IV STA (21:53)
[2019-05-01 22:13] LABS: Appearance,Urine Clear (Clear); Bilirubin,Urine Negative (Negative); Blood,Urine Negative (Negative); Color,Urine Light Yellow; Glucose,Urine (UA) Negative (Negative); Ketones,Urine Negative (Negative); Leukocyte Esterase,Urine Negative (Negative); Nitrite,Urine Negative (Negative); Protein,Urine Negative (Negative); Specific Gravity,Urine 1.007 (1.001-1.035); Urobilinogen,Urine <2.0 mg/dL (<2.0)
[2019-05-01 22:32] LABS: ALT 11 U/L (9-52); AST 23 U/L (14-36); African American GFR (CKD) >90 (>60 ml/min/1.73 sqM); Alkaline Phosphatase 78 U/L (38-126); Anion Gap 10 mmol/L; Blood Urea Nitrogen 16 mg/dL (7-17); Calcium 9.6 mg/dL (8.4-10.2); Carbon Dioxide 20 mmol/L (22-30); Chloride 108 mmol/L (98-107); Glucose 150 mg/dL (74-99); Non-African American GFR(CKD) >90 (>60 ml/min/1.73 sqM); Sodium 138 mmol/L (137-145); Total Bilirubin 0.4 mg/dL (0.2-1.3); Total Protein 6.8 g/dL (6.3-8.2)
[2019-05-01 22:36] LABS: Basophils % (A) 0 %; Eosinophils # (A) 0.2 k/uL (0-0.7); Eosinophils % (A) 3 %; HCT 39.3 % (34.0-46.0); HGB 13.2 gm/dL (11.4-16.0); Lymphocytes # (A) 2.5 k/uL (1.0-4.8); Lymphocytes % (A) 36 %; MCH 29.6 pg (25.0-35.0); MCHC 33.6 g/dL (31.0-37.0); MCV 88.2 fL (80.0-100.0); Mean Platelet Volume 7.9; Monocytes # (A) 0.3 k/uL (0-1.0); Monocytes % (A) 5 %; Neutrophils # (A) 3.9 k/uL (1.3-7.7); Neutrophils % (A) 55 %; Platelet Count 246 k/uL (150-450); RBC 4.45 m/uL (3.80-5.40); RDW 13.7 % (11.5-15.5); WBC 7.1 k/uL (3.8-10.6)
[2019-05-01] MEDS ORDERED: ONDANSETRON 4 MG/2 ML VIAL IVP STA (22:40)
[2019-05-01] MEDS ORDERED: MORPHINE SULFATE 4 MG/ML SYRINGE IVP STA (22:40)
--- NOTE | 2019-05-01 23:28 | ED ---
Abdominal Pain HPI - General Chief Complaint: Abdominal Pain Stated Complaint: abd pain Time Seen by Provider: 05/01/19 21:53 Source: patient Mode of arrival: ambulatory Limitations: no limitations - History of Present Illness Initial Comments: Isabella is a 43-year-old female with extensive past medical history is documented below patient presents the ER today for evaluation of left-sided abdominal pain radiating to her flank. Pain is severe, constant. Patient has a history of diverticulitis but can't recall if this is similar to that. Patient reports she had normal bowel movement earlier in the day. Denies urinary symptoms. Denies associated fevers chills or vomiting, but reports she feels severely nauseated. - Related Data Home Medications Medication Instructions Recorded Confirmed Ranitidine HCl [Zantac] 75 mg PO HS 11/23/16 02/18/18 Sertraline [Zoloft] 100 mg PO HS 11/23/16 02/18/18 Metoprolol Succinate [Toprol XL] 25 mg PO HS 11/14/17 02/18/18 busPIRone HCL [Buspar] 15 mg PO BID 11/14/17 02/18/18 Previous Rx's Medication Instructions Recorded Aspirin EC [Ecotrin Low Dose] 81 mg PO DAILY #30 tablet. 11/15/17 Allergies Allergy/AdvReac Type Severity Reaction Status Date / Time cephalexin monohydrate Allergy Rash/Hives Verified 05/01/19 21:49 [From Keflex] ciprofloxacin [From Cipro] Allergy Rash/Hives Verified 05/01/19 21:49 ciprofloxacin HCl Allergy Rash/Hives Verified 05/01/19 21:49 [From Cipro] Latex, Natural Rubber Allergy Itching Verified 05/01/19 21:49 prochlorperazine edisylate Allergy SEVERE Verified 05/01/19 21:49 [From Compazine] ANXIETY prochlorperazine maleate Allergy SEVERE Verified 05/01/19 21:49 [From Compazine] ANXIETY sulfamethoxazole Allergy Rash/Hives Verified 05/01/19 21:49 [From Bactrim] trimethoprim [From Bactrim] Allergy Rash/Hives Verified 05/01/19 21:49 gabapentin AdvReac Hallucinati Verified 05/01/19 21:49 ons Review of Systems ROS Statement: Those systems with pertinent positive or pertinent negative responses have been documented in the HPI. ROS Other: All systems not noted in ROS Statement are negative. Past Medical History Past Medical History: Osteoarthritis (OA), Pneumonia Additional Past Medical History / Comment(s): BOWEL OBSTRUCTION, PANCREATITIS, INTUSSUSCEPTION, HYDRONEPHROSIS, DEGENERATIVE DISC DISEASE, BULGING DISC, neutropenia, anemia, mitral valve prolapse, occasional heart palpitaions, SVT- PVC's History of Any Multi-Drug Resistant Organisms: None Reported Past Surgical History: Bowel Resection, Breast Surgery, Section, Cholecystectomy, Hernia Repair, Hysterectomy, Orthopedic Surgery, Tonsillectomy Additional Past Surgical History / Comment(s): CERVICAL FUSION, EXPLORATORY LAPAROTOMY - REMOVAL OF ECTOPIC , DANNA-N-Y GASTIC BYPASS, ABDOMINOPLASTY, BREAST BIOPSY AND REDUCTION, bilateral knee arthoscopy, "Gastric bypass reversal enoch morgan during procedure 03/26 04/02 pancreatitis, left knee, myelogram Past Anesthesia/Blood Transfusion Reactions: No Reported Reaction Past Psychological History: Anxiety, Depression Smoking Status: Light tobacco smoker Past Alcohol Use History: None Reported Past Drug Use History: None Reported - Past Family History Mother Family Medical History: No Reported History General Exam - General Exam Comments Initial Comments: Physical Exam GENERAL: Patient is well-developed and well-nourished. Patient is nontoxic and well- hydrated and is in no distress. HENT: Normocephalic, Atraumatic. EYES: PERRL, EOMI PULMONARY: Unlabored respirations. No audible rales rhonchi or wheezing was noted. CARDIOVASCULAR: There is a regular rate and rhythm without any murmurs gallops or rubs. ABDOMEN: Soft and nontender with normal bowel sounds. SKIN: Skin is clear with no lesions or rashes and otherwise unremarkable. : Deferred NEUROLOGIC: Patient is alert and oriented x3. Moving all extremities spontaneously MUSCULOSKELETAL: Normal extremities with adequate strength and full range of motion. No lower extremity swelling or edema. No calf tenderness. PSYCHIATRIC: Normal psychiatric evaluation. Limitations: no limitations Course Vital Signs 05/01/19 21:47 Temperature 98.1 F Pulse Rate 100 Respiratory 16 Rate Blood Pressure 157/101 O2 Sat by Pulse 97 Oximetry Medical Decision Making - Medical Decision Making The patient was seen and evaluated, history is obtained from the patient Physical exam was relatively unremarkable the patient has an extensive history, labs and imaging ordered, Zofran was ordered for nausea Labs resulted with no significant abnormalities aside computed tomography scan resulted with no inflammatory changes, no acute findings no signs of obstruction She was reevaluated and is resting comfortably after Zofran, results were discussed with the patient is comfortable with plan for discharge home with symptomatic care. Patient was given a Zofran ODT starter pack. Return parameters were discussed patient was discharged home in stable condition. - Lab Data Result diagrams: 05/01/19 22:15 05/01/19 22:15 Lab Results 05/01/19 05/01/19 05/01/19 Range/Units 22:05 22:05 22:15 WBC 7.1 (3.8-10.6) k/uL RBC 4.45 (3.80-5.40) m/uL Hgb 13.2 (11.4-16.0) gm/dL Hct 39.3 (34.0-46.0) % MCV 88.2 (80.0-100.0) fL MCH 29.6 (25.0-35.0) pg MCHC 33.6 (31.0-37.0) g/dL RDW 13.7 (11.5-15.5) % Plt Count 246 (150-450) k/uL Neutrophils % 55 % Lymphocytes % 36 % Monocytes % 5 % Eosinophils % 3 % Basophils % 0 % Neutrophils # 3.9 (1.3-7.7) k/uL Lymphocytes # 2.5 (1.0-4.8) k/uL Monocytes # 0.3 (0-1.0) k/uL Eosinophils # 0.2 (0-0.7) k/uL Basophils # 0.0 (0-0.2) k/uL Sodium (137-145) mmol/L Potassium (3.5-5.1) mmol/L Chloride (98-107) mmol/L Carbon Dioxide (22-30) mmol/L Anion Gap mmol/L BUN (7-17) mg/dL Creatinine (0.52-1.04) mg/dL Est GFR (CKD-EPI)AfAm (>60 ml/min/1.73 sqM) Est GFR (CKD-EPI)NonAf (>60 ml/min/1.73 sqM) Glucose (74-99) mg/dL Plasma Lactic Acid Billy (0.7-2.0) mmol/L Calcium (8.4-10.2) mg/dL Total Bilirubin (0.2-1.3) mg/dL AST (14-36) U/L ALT (9-52) U/L Alkaline Phosphatase (38-126) U/L Total Protein (6.3-8.2) g/dL Albumin (3.5-5.0) g/dL Lipase (23-300) U/L Urine Color Light Yellow Urine Appearance Clear (Clear) Urine pH 7.0 (5.0-8.0) Ur Specific [place] 1.007 (1.001-1.035) Urine Protein Negative (Negative) Urine Glucose (UA) Negative (Negative) Urine Ketones Negative (Negative) Urine Blood Negative (Negative) Urine Nitrite Negative (Negative) Urine Bilirubin Negative (Negative) Urine Urobilinogen <2.0 (<2.0) mg/dL Ur Leukocyte Esterase Negative (Negative) Urine HCG, Qual Not Detected (Not Detectd) 05/01/19 05/01/19 Range/Units 22:15 22:15 WBC (3.8-10.6) k/uL RBC (3.80-5.40) m/uL Hgb (11.4-16.0) gm/dL Hct (34.0-46.0) % MCV (80.0-100.0) fL MCH (25.0-35.0) pg MCHC (31.0-37.0) g/dL RDW (11.5-15.5) % Plt Count (150-450) k/uL Neutrophils % % Lymphocytes % % Monocytes % % Eosinophils % % Basophils % % Neutrophils # (1.3-7.7) k/uL Lymphocytes # (1.0-4.8) k/uL Monocytes # (0-1.0) k/uL Eosinophils # (0-0.7) k/uL Basophils # (0-0.2) k/uL Sodium 138 (137-145) mmol/L Potassium 4.0 (3.5-5.1) mmol/L Chloride 108 H (98-107) mmol/L Carbon Dioxide 20 L (22-30) mmol/L Anion Gap 10 mmol/L BUN 16 (7-17) mg/dL Creatinine 0.56 (0.52-1.04) mg/dL Est GFR (CKD-EPI)AfAm >90 (>60 ml/min/1.73 sqM) Est GFR (CKD-EPI)NonAf >90 (>60 ml/min/1.73 sqM) Glucose 150 H (74-99) mg/dL Plasma Lactic Acid Billy 1.7 (0.7-2.0) mmol/L Calcium 9.6 (8.4-10.2) mg/dL Total Bilirubin 0.4 (0.2-1.3) mg/dL AST 23 (14-36) U/L ALT 11 (9-52) U/L Alkaline Phosphatase 78 (38-126) U/L Total Protein 6.8 (6.3-8.2) g/dL Albumin 4.0 (3.5-5.0) g/dL Lipase 186 (23-300) U/L Urine Color Urine Appearance (Clear) Urine pH (5.0-8.0) Ur Specific [place] (1.001-1.035) Urine Protein (Negative) Urine Glucose (UA) (Negative) Urine Ketones (Negative) Urine Blood (Negative) Urine Nitrite (Negative) Urine Bilirubin (Negative) Urine Urobilinogen (<2.0) mg/dL Ur Leukocyte Esterase (Negative) Urine HCG, Qual (Not Detectd) Disposition Clinical Impression: Abdominal pain Disposition: HOME SELF-CARE Condition: Stable Additional Instructions: Make sure drinking plenty of fluids and stay hydrated, take Zofran as needed for nausea Return to the emergency department if he have any worsening abdominal pain, nausea that does not improve with Zofran or any new or concerning symptoms Up with her primary care doctor later this week for reevaluation even if you're feeling better Is patient prescribed a controlled substance at d/c from ED?: No Referrals: None,Stated [Primary Care Provider] - 1-2 days
--- NOTE | 2019-05-01 23:30 | CT ---
EXAMINATION TYPE: CT abdomen pelvis w con DATE OF EXAM: 05/01/2019 COMPARISON: 05/12/2015 HISTORY: Left flank pain CT DLP: 1677 mGycm Automated exposure control for dose reduction was used. CONTRAST: Performed with IV Contrast, patient injected with 100 mL of Isovue 300. Lung bases are clear of infiltrate. There is no pleural effusion. Heart size is normal. There are cli ps apparently from bariatric gastric surgery. Liver spleen pancreas appear normal. There are clips from cholecystectomy. Bile ducts are not dilated . There is no adrenal mass. Kidneys show satisfactory contrast opacification. There is no hydronephro sis. Ureters are not dilated. Bladder distends smoothly. There is no inguinal hernia. There is no ambrosio e fluid in the pelvis. There is no mesenteric edema. There is no ascites or free air. There is no sign of a bowel obstructio n. There is previous small bowel surgery. There is no sign of thickened appendix. Lumbar spine is int act. Bony pelvis is intact. IMPRESSION: No sign of acute abdomen and pelvis. Previous surgery.
[2019-05-02] MEDS ORDERED: ONDANSETRON 4 MG ODT STARTER PACK 2 TAB BTL PO STA (01:46)
[2019-05-02 02:22] VITALS: BP 103/65; PULSE 67
== END 2019-05-02 02:27 | disposition home or self-care (01) ==
LOC: EC 21:46
DX: R10.9 Unspecified abdominal pain (principal); R11.0 Nausea; F41.9 Anxiety disorder, unspecified; F32.9 Major depressive disorder, single episode, unspecified; F17.200 Nicotine dependence, unspecified, uncomplicated; Z79.899 Other long term (current) drug therapy; Z88.1 Allergy status to other antibiotic agents; Z91.040 Latex allergy status; Z91.048 Other nonmedicinal substance allergy status; Z88.2 Allergy status to sulfonamides; Z88.8 Allergy status to other drugs, medicaments and biological substances; Z98.84 Bariatric surgery status; Z98.1 Arthrodesis status
CPT/HCPCS: 36415; 80053; 83605; 83690; 85025; 81003; 81025; 74177; 99284; 96374; 96375; 96361 ×2; J2270; J2405; S0119; Q9967

== ENCOUNTER 2021-11-11 23:28 | Emergency (ER) | payer BC, OTHER ==
[2021-11-12 01:34] VITALS: BP 135/90; PULSE 73; RESP 19; TEMP 97.5
[2021-11-12] MEDS ORDERED: ACETAMINOPHEN TAB 500 MG TAB PO STA (01:48)
--- NOTE | 2021-11-12 02:08 | XR ---
EXAM: XR Chest, 2 Views CLINICAL HISTORY: ITS.REASON XR Reason: cough TECHNIQUE: Frontal and lateral views of the chest. COMPARISON: No relevant prior studies available. FINDINGS: Lungs: Mild to moderate peribronchial thickening of the central bronchi. No consolidation. Pleural space: Unremarkable. No pneumothorax. Heart: Unremarkable. No cardiomegaly. Mediastinum: Unremarkable. Bones/joints: Status post anterior fusion of the distal cervical spine. Unremarkable. IMPRESSION: Findings concerning for bronchitis, which may be of infectious or inflammatory etiologies. No consolidation.
--- NOTE | 2021-11-12 02:38 | CT ---
EXAM: CT Abdomen and Pelvis Without Intravenous Contrast CLINICAL HISTORY: ITS.REASON CT Reason: hernia pain TECHNIQUE: Axial computed tomography images of the abdomen and pelvis without intravenous contrast. CTDI is 20.4 mGy and DLP is 1193.9 mGy-cm. This CT exam was performed using one or more of the following dose reduction techniques: automated exposure control, adjustment of the mA and/or kV according to patient size, and/or use of iterative reconstruction technique. COMPARISON: Comparison made to prior CT scan of the pelvis from May 01, 2019. FINDINGS: Lung bases: Unremarkable. No mass. No consolidation. ABDOMEN: Liver: Unremarkable. Gallbladder and bile ducts: Status post cholecystectomy. No ductal dilation. Pancreas: Unremarkable. No ductal dilation. Spleen: Unremarkable. No splenomegaly. Adrenals: Unremarkable. No mass. Kidneys and ureters: Unremarkable. No obstructing stones. No hydronephrosis. Stomach and bowel: Status post gastric stapling with a surgical staple line in place. Postsurgical changes of the small bowel with surgical staple line in place. Possible colitis of the ascending colon with submucosal fat halo sign. Diverticulosis of the sigmoid colon. PELVIS: Appendix: No findings to suggest acute appendicitis. Bladder: Unremarkable. No stones. Reproductive: Status post hysterectomy. ABDOMEN and PELVIS: Intraperitoneal space: Unremarkable. No free air. No significant fluid collection. Bones/joints: Moderate disc degeneration L5-S1. No acute fracture. No dislocation. Soft tissues: There is an 8 mm fat-containing anterior abdominal hernia. Vasculature: Unremarkable. No abdominal aortic aneurysm. Lymph nodes: There are numerous prominent scattered lymph nodes throughout the mesenteric fat. IMPRESSION: 1. Findings concerning for colitis of the ascending colon with submucosal fat halo sign, which may be infectious or inflammatory etiologies. 2. There is a 8 mm fat-containing anterior abdominal hernia. 3. Status post cholecystectomy and hysterectomy.
[2021-11-12] MEDS ORDERED: ONDANSETRON ODT 4 MG TAB PO STA (04:51)
[2021-11-12] MEDS ORDERED: AZITHROMYCIN 500 MG TAB PO STA (04:51)
[2021-11-12] MEDS ORDERED: Acetaminophen-Codeine 300-30mg TAB PO STA (04:51)
[2021-11-12] MEDS ORDERED: BENZONATATE 100 MG CAP PO STA (04:51)
--- NOTE | 2021-11-12 04:54 | ED ---
URI HPI - General Chief Complaint: Upper Respiratory Infection Stated Complaint: Chest Pain, Cough, Headache Time Seen by Provider: 11/12/21 04:10 Source: patient, RN notes reviewed, old records reviewed Mode of arrival: ambulatory Limitations: no limitations - History of Present Illness Initial Comments: This is a 46-year-old female to the emergency department for evaluation. Patient is multiple patient has concern for RSV she has current concern for cough and congestion she has concern for abdominal pain with history of abdominal hernia. Chronic abdominal pain. But this is worse with cough. She has otherwise no known significant sick contacts otherwise no travel history no trauma. Mainly weeklong cough MD Complaint: fever, cough, other (Abdominal pain concern for hernia) -: days(s) Severity: moderate Severity scale (1-10): 4 Quality: sharp Consistency: intermittent Improves With: nothing Worsens With: nothing Context: sick contacts Associated Symptoms: myalgias, nasal congestion, sore throat, cough Treatments Prior to Arrival: none - Related Data Home Medications Medication Instructions Recorded Confirmed Sertraline [Zoloft] 100 mg PO HS 11/23/16 02/18/18 raNITIdine HCL [Zantac] 75 mg PO HS 11/23/16 02/18/18 Metoprolol Succinate [Toprol XL] 25 mg PO HS 11/14/17 02/18/18 busPIRone HCL [Buspar] 15 mg PO BID 11/14/17 02/18/18 Previous Rx's Medication Instructions Recorded Aspirin EC [Ecotrin Low Dose] 81 mg PO DAILY #30 tablet. 11/15/17 Albuterol Sulfate [Proair Hfa] 1 - 2 puff INHALATION Q4H PRN #8.5 11/12/21 gm Azithromycin [Zithromax] 500 mg PO DAILY #5 tab 11/12/21 Benzonatate [Tessalon Perles] 100 mg PO TID PRN #15 capsule 11/12/21 Allergies Allergy/AdvReac Type Severity Reaction Status Date / Time cephalexin monohydrate Allergy Rash/Hives Verified 11/12/21 01:34 [From Keflex] ciprofloxacin [From Cipro] Allergy Rash/Hives Verified 11/12/21 01:34 ciprofloxacin HCl Allergy Rash/Hives Verified 11/12/21 01:34 [From Cipro] Latex, Natural Rubber Allergy Itching Verified 11/12/21 01:34 prochlorperazine edisylate Allergy SEVERE Verified 11/12/21 01:34 [From Compazine] ANXIETY prochlorperazine maleate Allergy SEVERE Verified 11/12/21 01:34 [From Compazine] ANXIETY sulfamethoxazole Allergy Rash/Hives Verified 11/12/21 01:34 [From Bactrim] trimethoprim [From Bactrim] Allergy Rash/Hives Verified 11/12/21 01:34 gabapentin AdvReac Hallucinati Verified 11/12/21 01:34 ons Review of Systems ROS Statement: Those systems with pertinent positive or pertinent negative responses have been documented in the HPI. ROS Other: All systems not noted in ROS Statement are negative. Past Medical History Past Medical History: Osteoarthritis (OA), Pneumonia Additional Past Medical History / Comment(s): BOWEL OBSTRUCTION, PANCREATITIS, INTUSSUSCEPTION, HYDRONEPHROSIS, DEGENERATIVE DISC DISEASE, BULGING DISC, neutropenia, anemia, mitral valve prolapse, occasional heart palpitaions, SVT- PVC's, diverticulosis, hernia History of Any Multi-Drug Resistant Organisms: None Reported Past Surgical History: Bowel Resection, Breast Surgery, Section, Cholecystectomy, Hernia Repair, Hysterectomy, Orthopedic Surgery, Tonsillectomy Additional Past Surgical History / Comment(s): CERVICAL FUSION, EXPLORATORY LAPAROTOMY - REMOVAL OF ECTOPIC , DANNA-N-Y GASTIC BYPASS, ABDOMINOPLASTY, BREAST BIOPSY AND REDUCTION, bilateral knee arthoscopy, "Gastric bypass reversal enoch morgan during procedure 03/26 04/02 pancreatitis, left knee, myelogram Past Anesthesia/Blood Transfusion Reactions: No Reported Reaction Past Psychological History: Anxiety, Depression Smoking Status: Vaper Past Alcohol Use History: None Reported Past Drug Use History: None Reported - Past Family History Mother Family Medical History: No Reported History General Exam General appearance: anxious Head exam: Present: atraumatic, normocephalic, normal inspection Eye exam: Present: normal appearance, PERRL, EOMI. Absent: scleral icterus, conjunctival injection, periorbital swelling ENT exam: Present: normal exam, mucous membranes moist Neck exam: Present: normal inspection. Absent: tenderness, meningismus, lymphadenopathy Respiratory exam: Present: normal lung sounds bilaterally. Absent: respiratory distress, wheezes, rales, rhonchi, stridor Cardiovascular Exam: Present: regular rate, normal rhythm, normal heart sounds. Absent: systolic murmur, diastolic murmur, rubs, gallop, clicks GI/Abdominal exam: Present: soft, normal bowel sounds. Absent: distended, tenderness, guarding, rebound, rigid Extremities exam: Present: normal inspection, full ROM, normal capillary refill. Absent: tenderness, pedal edema, joint swelling, calf tenderness Back exam: Present: normal inspection Neurological exam: Present: alert, oriented X3, CN II-XII intact Psychiatric exam: Present: normal affect, normal mood Skin exam: Present: warm, dry, intact, normal color. Absent: rash Course Vital Signs 11/12/21 01:28 Temperature 97.5 F L Pulse Rate 73 Respiratory 19 Rate Blood Pressure 135/90 O2 Sat by Pulse 97 Oximetry - Reevaluation(s) Reevaluation #1: 11/12/21 Medical record is reviewed Reevaluation #2: 11/12/21 Patient has improved symptoms here in the ER Reevaluation #3: 11/12/21 Patient informed results and questions answered Medical Decision Making - Medical Decision Making 46 female to the emergency department with chronic abdominal pain with coming in for cough congestion. No significant findings here in the ER symptoms consistent with bronchitis. Patient can be discharged home - Lab Data Lab Results 11/12/21 11/12/21 Range/Units 01:43 01:43 Coronavirus (PCR) Not Detected (Not Detectd) Influenza Type A RNA Not Detected (Not Detectd) Influenza Type B (PCR) Not Detected (Not Detectd) - Radiology Data Radiology results: report reviewed (Chest x-ray and CT abdomen and pelvis negative for acute disease), image reviewed Disposition Clinical Impression: Abdominal pain, Acute upper respiratory infection, Bronchitis Disposition: HOME SELF-CARE Condition: Good Instructions (If sedation given, give patient instructions): Acute Bronchitis (ED), Abdominal Pain (ED) Prescriptions: Albuterol Sulfate [Proair Hfa] 1 - 2 puff INHALATION Q4H PRN #8.5 gm PRN Reason: Shortness Of Breath Benzonatate [Tessalon Perles] 100 mg PO TID PRN #15 capsule PRN Reason: Cough Azithromycin [Zithromax] 500 mg PO DAILY #5 tab Is patient prescribed a controlled substance at d/c from ED?: No Referrals: None,Stated [Primary Care Provider] - 1-2 days Time of Disposition: 06:30
[2021-11-12] MEDS ORDERED: traMADol 50 MG STARTER PACK 3 TAB BTL PO STA (06:20)
[2021-11-12] MEDS ORDERED: traMADol 50 MG TAB PO STA (06:20)
== END 2021-11-12 06:40 | disposition home or self-care (01) ==
LOC: EC 23:28
DX: J06.9 Acute upper respiratory infection, unspecified (principal); J40 Bronchitis, not specified as acute or chronic; R10.9 Unspecified abdominal pain; F17.290 Nicotine dependence, other tobacco product, uncomplicated; Z88.8 Allergy status to other drugs, medicaments and biological substances; Z88.1 Allergy status to other antibiotic agents; Z91.040 Latex allergy status; Z88.2 Allergy status to sulfonamides; Z20.822 Contact with and (suspected) exposure to COVID-19
CPT/HCPCS: 71046; 74176; 87502; 87635; 99284